=== PATIENT | male | born 1940 | race Caucasian/White ===

== ENCOUNTER 2019-07-26 12:34 | Emergency (ER) | payer MEDICARE, OTHER, SELFPAY ==
[2019-07-26 12:45] VITALS: BP 145/128; PULSE 85; RESP 18; TEMP 36.9; O2SAT 99
--- NOTE | 2019-07-26 12:48 | ED.LOWEXIN ---
HPI - Extremity Injury (Lower) General Chief Complaint: Extremity Injury, Lower Stated Complaint: gout/r/foot Time Seen by Provider: 07/26/19 12:49 Source: patient Mode of arrival: ambulatory Limitations: no limitations History of Present Illness HPI Narrative: Chandrakant Irby is a 78-year-old male with a PMH of high blood pressure, high cholesterol, A. fib, gout, comes to express care with pain of right foot, that believes he has a flare of gout x1 week Related Data Home Medications Medication Instructions Recorded Confirmed Medications Unknown About 12 07/26/19 Allergies Allergy/AdvReac Type Severity Reaction Status Date / Time No Known Allergies Allergy Verified 07/26/19 12:49 Review of Systems Review of Systems: Narrative: CONSTITUTIONAL: Denies fever, chills, sweats. EYES: Denies visual changes, redness, discharge. ENT: Denies rhinorrhea, congestion, sore throat, otalgia. CARDIOVASCULAR: Denies chest pain, palpitations, edema. RESPIRATORY: Denies dyspnea, wheezing, cough GASTROINTESTINAL: Denies abdominal pain, nausea, vomiting, diarrhea. GENITOURINARY: Denies dysuria, hematuria, abnormal discharge SKIN: Denies rash or itching. NEUROLOGIC: Denies numbness, or focal weakness. PSYCHIATRIC: Denies anxiety or depression. Extremity: Swelling of base E great toe PMFSH Past Medical History Medical History CHF (congestive heart failure) COPD (chronic obstructive pulmonary disease) HLD (hyperlipidemia) Hypothyroid Kidney stone Laryngeal cancer x3 Pacemaker Skin cancer Tracheostomy in place Valvular heart disease Surgical History Surgical History H/O aortic valve replacement History of cardiac catheterization History of laryngectomy History of tonsillectomy History of umbilical hernia repair Family History Family History Father Family history of cardiovascular disease Mother Family history of cardiovascular disease Social History Social History Smoking status: Former smoker Alcohol intake: never Gender identity (if verbalized by the patient): Male Comments At time of signature, I agree with nursing past medical, surgical, social and family history. There is no relevant family history pertinent to the presenting complaint. Exam Narrative: Exam Narrative: GENERAL: This is a well-nourished, well-developed patient, in mild distress. HEAD: normocephalic, atraumatic. EYES: Sclera clear/white. Vision is grossly intact. EARS: External ears normal, Hearing grossly intact. NOSE: External nose normal with no obvious nasal discharge, nares without redness, no rhinorrhea. THROAT: Mucous membranes moist, . NECK: Neck supple, non-tender has permanent tracheotomy CARDIOVASCULAR: Regular rate and rhythm without murmurs, gallops, or rubs. RESPIRATORY: Clear to auscultation. Breath sounds equal bilaterally. No wheezes, rales, or rhonchi. GASTROINTESTINAL: Abdomen soft, non-tender, nondistended. SKIN: warm, intact, swelling base of right great toe, tender to touch, pain with walking NEURO: awake, alert, and oriented to person, place and time. EXTREMITIES: Normal range of motion. No edema. BACK: Nontender without deformity. Course Course Emergency Course: Started on [place] and prednisone Vital Signs Vital signs: Vital Signs Temperature 98.5 F 07/26/19 12:45 Pulse Rate 85 07/26/19 12:45 Respiratory Rate 18 07/26/19 12:45 Blood Pressure 145/128 H 07/26/19 12:45 Pulse Oximetry 99 07/26/19 12:45 Temperature 98.5 F 07/26/19 12:45 Pulse Rate 85 07/26/19 12:45 Respiratory Rate 18 07/26/19 12:45 Blood Pressure 145/128 H 07/26/19 12:45 Pulse Oximetry 99 07/26/19 12:45 MDM - Extremity Injury (Lower) Differential Diagn
== END 2019-07-26 13:06 | disposition home or self-care (01) ==
PROVIDERS: Emergency Provider Nurse Practitioner
DX: M10.9 Gout, unspecified (principal); Z87.891 Personal history of nicotine dependence; Z95.2 Presence of prosthetic heart valve; J44.9 Chronic obstructive pulmonary disease, unspecified; E03.9 Hypothyroidism, unspecified; Z95.0 Presence of cardiac pacemaker; Z85.828 Personal history of other malignant neoplasm of skin; E78.5 Hyperlipidemia, unspecified; I50.9 Heart failure, unspecified; Z85.21 Personal history of malignant neoplasm of larynx; Z93.0 Tracheostomy status; I11.0 Hypertensive heart disease with heart failure; I48.91 Unspecified atrial fibrillation
CPT/HCPCS: 99213; G0463

== ENCOUNTER → 2019-08-20 14:58 | Outpatient (CLI) | payer MEDICARE, OTHER, SELFPAY ==
--- NOTE | ~2019-08-20 | XR_ITS ---
EXAMINATION: XR foot RT min 3V DATE: 08/20/2019 15:21 INDICATION: Right foot pain TECHNIQUE: Dorsoplantar, lateral, and 2 oblique views of the right foot were obtained. COMPARISON: None. FINDINGS: There are juxta-articular erosions at the distal aspect of the first metatarsal near the me tatarsophalangeal joint which demonstrates sclerotic margins and adjacent soft tissue swelling. 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 There is no fracture. Calcified atheroscle rosis is noted. There are dorsal and plantar calcaneal enthesophytes. IMPRESSION: 1. Findings suggestive of gout at the first metatarsophalangeal joint. Reviewed, dictated and finalized at location A.
== END ==
PROVIDERS: PCP Emergency Medicine; Visit Provider Emergency Medicine
DX: L03.90 Cellulitis, unspecified (principal)
CPT/HCPCS: 73630

== ENCOUNTER 2019-11-28 15:50 | Emergency (ER) | payer MEDICARE, OTHER, SELFPAY ==
[2019-11-28 16:07] VITALS: BP 135/56; PULSE 78; RESP 16; TEMP 37; O2SAT 99
--- NOTE | 2019-11-28 16:28 | ED.GENADULT ---
HPI - General Adult General Chief complaint: Extremity Problem,Nontraumatic Stated complaint: left ankle sprain Time Seen by Provider: 11/28/19 16:28 Source: patient and RN notes reviewed Mode of arrival: ambulatory Limitations: no limitations History of Present Illness HPI narrative: This is a 79 years old male presents to the office for an evaluation of left ankle swollen for three to four days. He woke up with pain. Symptoms reminiscent his previous gout. He admits to eating lots of Chips and fried fish, denies drinking alcohol or eating red meat. Denies recent injury/trauma/insect bite. He tried ice and ankle splint with no relief. Related Data Home Medications Medication Instructions Recorded Confirmed Medications Unknown About 12 07/26/19 Allergies Allergy/AdvReac Type Severity Reaction Status Date / Time No Known Allergies Allergy Verified 07/26/19 12:49 Review of Systems Review of Systems: Narrative: CONSTITUTIONAL: Denies fever, chills CARDIOVASCULAR: Denies chest pain RESPIRATORY: Denies dyspnea,cough GASTROINTESTINAL: Denies abdominal pain, nausea, vomiting SKIN: Denies rash MUSCULOSKELETAL: Reports left ankle swollen NEUROLOGIC: Denies lightheaded All other systems reviewed are negative, except as documented in HPI. [facility] Past Medical History Medical History CHF (congestive heart failure) COPD (chronic obstructive pulmonary disease) HLD (hyperlipidemia) Hypothyroid Kidney stone Laryngeal cancer x3 Pacemaker Skin cancer Tracheostomy in place Valvular heart disease Surgical History Surgical History H/O aortic valve replacement History of cardiac catheterization History of laryngectomy History of tonsillectomy History of umbilical hernia repair Family History Family History Father Family history of cardiovascular disease Mother Family history of cardiovascular disease Social History Social History Smoking status: Former smoker Alcohol intake: never Gender identity (if verbalized by the patient): Male Comments At time of signature, I agree with nursing past medical, surgical, social and family history. There is no relevant family history pertinent to the presenting complaint. Exam Narrative: Exam Narrative: GENERAL: This is a well-nourished, well-developed patient, in no apparent distress. NECK: tracheal ostomy noted CARDIOVASCULAR: Regular rate and rhythm without murmurs, gallops, or rubs. RESPIRATORY: Clear to auscultation. Breath sounds equal bilaterally. No wheezes, rales, or rhonchi. GASTROINTESTINAL: Abdomen soft, non-tender, nondistended. Bowel sounds are active. No hepato-splenomegaly, or palpable masses. No guarding. SKIN: warm, intact with no suspicious lesions or rash, good texture and turgor. NEURO: awake, alert, and oriented to person, place and time. There were no obvious focal neurologic abnormalities. Steady gait EXTREMITIES: left lateral ankle appears swollen, tender to palpation with slight erythema and warmth to palpation. Pedal pulse intact. Right foot/ankle intact. Skin intact. Evelin Coma Scale Eye Opening: Spontaneous 4 [place] Coma Scale Motor: Obeys Commands 6 E[place]in Coma Scale Verbal: Oriented 5 Course Vital Signs Vital signs: Vital Signs Temperature 98.6 F 11/28/19 16:07 Pulse Rate 78 11/28/19 16:07 Respiratory Rate 16 11/28/19 16:07 Blood Pressure 135/56 L 11/28/19 16:07 Pulse Oximetry 99 11/28/19 16:07 Temperature 98.6 F 11/28/19 16:07 Pulse Rate 78 11/28/19 16:07 Respiratory Rate 16 11/28/19 16:07 Blood Pressure 135/56 L 11/28/19 16:07 Pulse Oximetry 99 11/28/19 16:07 Medical Decision Making MDM Narrative Medical decision making narrative: Discharge
== END 2019-11-28 16:49 | disposition home or self-care (01) ==
PROVIDERS: Emergency Provider Nurse Practitioner
DX: M10.9 Gout, unspecified (principal); Z87.891 Personal history of nicotine dependence; I50.9 Heart failure, unspecified; J44.9 Chronic obstructive pulmonary disease, unspecified; E78.5 Hyperlipidemia, unspecified; E03.9 Hypothyroidism, unspecified; Z95.0 Presence of cardiac pacemaker; Z85.21 Personal history of malignant neoplasm of larynx; Z85.828 Personal history of other malignant neoplasm of skin; Z93.0 Tracheostomy status; Z95.2 Presence of prosthetic heart valve
CPT/HCPCS: 99213; G0463

== ENCOUNTER 2020-01-03 15:15 | Outpatient (CLI) | payer MEDICARE, OTHER, SELFPAY ==
[2020-01-03 15:43] LABS: Basophils Absolute Auto 0.1 K/mm3 (0.0-0.1); Basophils Percent Auto 0.7 % (0.2-1.2); Eosinophils Absolute Auto 0.5 K/mm3 (0-0.3); Eosinophils Percent Auto 7.7 % (0-4.4); Hematocrit 36.4 % (42.0-52.0); Immature Granulocyte Absolute 0.02 K/mm3 (0.00-0.031); Immature Granulocyte Percent A 0.3 % (0-0.5); Immature Reticulocyte Fraction 10.6 % (3.0-15.9); Lymphocytes Absolute Auto 0.72 K/mm3 (0.9-3.2); Lymphocytes Percent Auto 10.7 % (18.3-44.2); Mean Corpuscular Hemoglobin 31.7 pg (26-34); Mean Corpuscular Volume 96.3 fl (80-100); Mean Platelet Volume 9.1 fl (7.4-10.4); Monocytes Absolute Auto 0.5 K/mm3 (0.1-0.6); Monocytes Percent Auto 7.4 % (2.6-8.5); Neutrophils Absolute Auto 4.9 K/mm3 (1.3-6.7); Neutrophils Percent Auto 73.2 % (45.5-73.1); Platelet Count Result 134 k/mm3 (150-375); Red Blood Count 3.78 M/mm3 (4.6-6.20); Red Cell Distribution Width 13.2 % (11.5-14.5); Reticulocyte Hemoglobin Conten 36.9 pg (28.2-35.7); Reticulocyte Percent 1.16 % (0.7-4.3); Reticulocytes Absolute 0.04 B/L (32.2-175.7); White Blood Count 6.7 K/mm3 (4.5-10.0)
[2020-01-03 16:48] LABS: Iron 65 ug/dL (49-181)
[2020-01-03 16:50] LABS: Alanine Aminotransferase 17 U/L (4-50); Albumin Level 3.5 g/dL (3.5-5.1); Alkaline Phosphatase 78 U/L (38-126); Anion Gap 5 mmol/L (8-16); Aspartate Amino Transferase 34 U/L (17-59); Bilirubin,Total 0.4 mg/dL (0.2-1.3); Blood Urea Nitrogen 25 mg/dL (9-20); Calcium 8.9 mg/dL (8.4-10.2); Carbon Dioxide 25 mmol/L (22-30); Chloride 109 mmol/L (98-107); Estimated Glomerular Filt Rate 53; Glucose 92 mg/dL (75-110); Lactate Dehydrogenase 608 U/L (313-618); Potassium 4.5 mmol/L (3.4-5.0); Sodium 139 mmol/L (137-145)
[2020-01-03 17:06] LABS: Percent Iron Saturation 23 % (20-50)
[2020-01-11 18:39] LABS: Soluble Transferrin Receptor 2.48 mg/L (0.76-1.76)
== END 2020-01-03 15:16 | disposition home or self-care (01) ==
PROVIDERS: Visit Provider Internal Medicine Hematology & Oncology
DX: D64.9 Anemia, unspecified (principal)
CPT/HCPCS: 36415; 80053; 82607; 82728; 82746; 83540; 83550; 83615; 84238; 85025; 85046

== ENCOUNTER 2020-06-19 15:56 | Outpatient (CLI) | payer MEDICARE, OTHER, SELFPAY ==
[2020-06-19 16:29] LABS: Anion Gap 5 mmol/L (8-16); Blood Urea Nitrogen 40 mg/dL (9-20); Carbon Dioxide 28 mmol/L (22-30); Chloride 107 mmol/L (98-107); Estimated Glomerular Filt Rate 36; Glucose 104 mg/dL (75-110); Potassium 4.3 mmol/L (3.4-5.0); Sodium 140 mmol/L (137-145)
== END 2020-06-19 15:57 | disposition home or self-care (01) ==
LOC: ANHLAB 16:00
PROVIDERS: Visit Provider Nurse Practitioner Adult Health
DX: I50.22 Chronic systolic (congestive) heart failure (principal)
CPT/HCPCS: 36415; 80048

== ENCOUNTER 2020-07-23 12:43 | Outpatient (CLI) | payer MEDICARE, OTHER, SELFPAY ==
[2020-07-23 14:02] LABS: Anion Gap 8 mmol/L (8-16); Blood Urea Nitrogen 52 mg/dL (9-20); Calcium 8.8 mg/dL (8.4-10.2); Carbon Dioxide 26 mmol/L (22-30); Chloride 105 mmol/L (98-107); Estimated Glomerular Filt Rate 45; Glucose 99 mg/dL (75-110); Potassium 4.6 mmol/L (3.4-5.0); Sodium 139 mmol/L (137-145)
== END 2020-07-23 12:44 | disposition home or self-care (01) ==
LOC: ANHLAB 12:47
PROVIDERS: Visit Provider Nurse Practitioner Adult Health
DX: I50.9 Heart failure, unspecified (principal)
CPT/HCPCS: 36415; 80048

== ENCOUNTER 2020-10-08 15:44 | Emergency (ER) | payer MEDICARE, OTHER, SELFPAY ==
--- NOTE | ~2020-10-08 | CT_ITS ---
EXAMINATION: CT brain wo con DATE: 10/08/2020 17:07 INDICATION: Dizziness post fall with head injury TECHNIQUE: Computed tomography (CT) of the head was performed without intravenous contrast. Sagittal and coronal reconstructions were performed. The mA was adjusted according to patient size. Iterative reconstruction technique was employed. The dose-length product was 681.00 mGy-cm. COMPARISON: None FINDINGS: Plain screw fixation along the lateral rim of the right orbit. Old fractures involving the right maxi llary sinus the visualized portion of which appears completely opacified. No acute fractures identifi ed. No acute intracranial hemorrhage, acute infarction or abnormal extra axial fluid collection. Symm etric prominence of the sulci and ventricles consistent with mild to moderate age-appropriate diffuse cerebral volume loss. No mass/mass effect. Mastoid air cells and middle ear cavities are clear. Intr acranial calcified cerebral atherosclerosis is noted. IMPRESSION: 1. Normal aging brain. No acute fracture or acute intracranial process. Reviewed, dictated and finalized at location A.
[2020-10-08 15:58] VITALS: BP 105/42; PULSE 73; RESP 16; TEMP 36.2; O2SAT 98
--- NOTE | 2020-10-08 16:44 | ED.HEATRA ---
HPI - Head Injury General Chief complaint: Head Injury Stated complaint: Fall, Head Injury, Laceration Time Seen by Provider: 10/08/20 16:44 History of Present Illness HPI Narrative: 80 yo male with multiple medical problems presents to the ED complaining of a scalp laceration. He reports that he was working in the yard when he slipped on wet leaves and struck the back of his head. He had momentary dizziness and confusion. No LOC. He sustained a laceration to the top of his scalp. He is not on any blood thinners. Related Data Home Medications Medication Instructions Recorded Confirmed carvedilol 10/08/20 clotrimazole mg 10/08/20 Allergies Allergy/AdvReac Type Severity Reaction Status Date / Time No Known Allergies Allergy Verified 07/26/19 12:49 Review of Systems Constitutional: Constitutional: Denies fever(s) and Denies weakness Eyes: Eyes: Denies change in vision Cardiovascular: Cardiovascular: Denies chest pain Respiratory: Respiratory: Denies dyspnea Gastrointestinal: Gastrointestinal: Denies nausea Musculoskeletal: Musculoskeletal: Denies back pain Neurologic: Denies headache(s), Denies numbness and Denies weakness Hematologic/Lymphatic: Hematologic/Lymphatic: Denies easy bleeding and Denies easy bruising PMFSH Past Medical History Medical History CHF (congestive heart failure) COPD (chronic obstructive pulmonary disease) HLD (hyperlipidemia) Hypothyroid Kidney stone Laryngeal cancer x3 Pacemaker Skin cancer Tracheostomy in place Valvular heart disease Surgical History Surgical History H/O aortic valve replacement History of cardiac catheterization History of laryngectomy History of tonsillectomy History of umbilical hernia repair Family History Family History Father Family history of cardiovascular disease Mother Family history of cardiovascular disease Social History Social History Smoking status: Former smoker Alcohol intake: never Gender identity (if verbalized by the patient): Male Exam Const: General: no acute distress and alert Nutritional Appearance: well nourished Orientation/consciousness: patient oriented x3 HENMT: Face and sinus: normal facial exam Other: 6 cm parietal scalp laceration with abraded and macerated edges Eyes: Pupils: Equal, round and reactive pupils present Neck: Other: tracheostomy in place Resp: Effort & Inspection: normal respiratory effort Auscultation: clear to auscultation bilaterally Cardio: Rate: regular rate Rhythm: regular rhythm Skin: General skin exam: normal color Neuro: General: patient oriented x3, moves all extremities and no focal motor deficits Cranial nerves: Yes CN's II-XII intact bilaterally Gait exam (Neuro): Normal gait present Extrem: General: normal to inspection Psych: Appearance: grossly normal and well kempt Mental Status: mental status grossly normal Affect: normal affect Attitude: cooperative Course Vital Signs Vital signs: Vital Signs Temperature 36.2 C L 10/08/20 15:58 Pulse Rate 73 10/08/20 15:58 Respiratory Rate 16 10/08/20 15:58 Blood Pressure 105/42 L 10/08/20 15:58 Pulse Oximetry 98 10/08/20 15:58 Temperature 36.2 C L 10/08/20 15:58 Pulse Rate 73 10/08/20 15:58 Respiratory Rate 16 10/08/20 15:58 Blood Pressure 105/42 L 10/08/20 15:58 Pulse Oximetry 98 10/08/20 15:58 Procedures Laceration Laceration 1: Site: scalp Size (cm): 6 Depth: simple, single layer Local Anesthetic: lidocaine 1% and with epi Amount of anesthesia used (mL): 5 Pre-repair: wound explored, irrigated and minor debridement ====== Skin Level ====== Skin layer closed with: vicry
[2020-10-08 17:52] VITALS: BP 131/41; PULSE 83; RESP 18; TEMP 36.3; O2SAT 98
== END 2020-10-08 17:52 | disposition home or self-care (01) ==
PROVIDERS: Emergency Provider Emergency Medicine
DX: S01.01XA Laceration without foreign body of scalp, initial encounter (principal); I50.9 Heart failure, unspecified; J44.9 Chronic obstructive pulmonary disease, unspecified; E78.5 Hyperlipidemia, unspecified; E03.9 Hypothyroidism, unspecified; Z87.442 Personal history of urinary calculi; Z95.0 Presence of cardiac pacemaker; Z85.828 Personal history of other malignant neoplasm of skin; I38 Endocarditis, valve unspecified; Z95.2 Presence of prosthetic heart valve; Z87.891 Personal history of nicotine dependence; Z85.21 Personal history of malignant neoplasm of larynx; Z93.0 Tracheostomy status; W01.0XXA Fall on same level from slipping, tripping and stumbling without subsequent striking against object, initial encounter
CPT/HCPCS: 12002; 70450; 99284

== ENCOUNTER 2022-05-05 11:50 | Emergency (ER) | payer MEDICARE, OTHER, SELFPAY ==
[2022-05-05 12:02] VITALS: BP 89/35; PULSE 71; RESP 24; TEMP 35.8; O2SAT 97
--- NOTE | 2022-05-05 12:29 | ED.URI ---
HPI - URI/Sore Throat General Chief Complaint: Upper Respiratory Infection Stated Complaint: Cough/ Chest Pain/ Fatique Time Seen by Provider: 05/05/22 12:05 Source: patient Mode of arrival: ambulatory Limitations: no limitations History of Present Illness HPI Narrative: Chandrakant is an 81-year-old male patient presenting to clinic today with complaints of cough, chest pain, shortness of breath, and fatigue x2 days. He denies any known fever or chills. SpO2 was 83% initially upon exam. He thinks he may have pneumonia. He just had throat surgery 1 week ago at [facility]. 10 L of O2 the oxygen was placed over the trach and EMS was contacted. MD elicited complaint: cough and other ( Congestion, shortness of breath) Related Data Home Medications Medication Instructions Recorded Confirmed carvedilol 12.5 mg tablet 10/08/20 clotrimazole 10 mg michelle mg 10/08/20 Allergies Allergy/AdvReac Type Severity Reaction Status Date / Time No Known Allergies Allergy Verified 07/26/19 12:49 Review of Systems Review of Systems: Pertinent positives per HPI. Patient denies any fever, chills, rash, headache, visual changes, dizziness, cough, shortness of breath, chest pain, palpitations, nausea, vomiting, diarrhea, constipation, abdominal pain, or any urinary issues. [facility] Past Medical History Medical History (Updated 05/05/22 @ 15:14 by Svetlana Clemons MD) CHF (congestive heart failure) COPD (chronic obstructive pulmonary disease) HLD (hyperlipidemia) Hypothyroid Kidney stone Laryngeal cancer x3 Pacemaker Skin cancer Tracheostomy in place Valvular heart disease Surgical History Surgical History H/O aortic valve replacement History of cardiac catheterization History of laryngectomy History of tonsillectomy History of umbilical hernia repair Family History Family History Father Family history of cardiovascular disease Mother Family history of cardiovascular disease Social History Social History Smoking status: Former smoker Alcohol intake: never Gender identity (if verbalized by the patient): Male Comments At the time of my signature, I reviewed and agree with the nursing past medical, surgical, social, and family history. There is no relevant family history pertinent to the patient complaint. Exam Narrative: General: Well-developed, well nourished, in moderate respiratory distress Head: Normocephalic, atraumatic Eyes: Pupils equally round and reactive to light bilaterally, EOM intact, sclera and conjunctive clear, no discharge, lids normal Ears: TMs intact and clear, ear canals clear, no drainage, grossly hearing normal. Nose: Nares patent, no discharge, no inflammation, no sinus tenderness. Mouth: Oral pharynx without lesions or masses, good dentition, MMM. Neck: Supple, trachea midline, no enlargement of anterior or posterior cervical nodes, no thyroid masses or goiter palpable. tracheostomy midline with crusty yellow drainage coming around trach Cardio: Regular rate and rhythm, s1 and s2 normal, no murmur appreciated. Resp: Expiratory wheezing throughout lung ruiz no rhonchi, rales,or rubs Course Course Emergency Course: Portions of this record may have been created with voice recognition software. Level of Care: Express Care Visit Vital Signs Vital signs: Vital Signs Temperature 35.8 C L 05/05/22 12:02 Pulse Rate 71 05/05/22 12:02 Respiratory Rate 24 H 05/05/22 12:02 Blood Pressure 89/35 L 05/05/22 12:02 Pulse Oximetry 97 05/05/22 12:02 Oxygen Delivery Room Air 05/05/22 12:02 Temperature 35.8 C L 05/05/22 12:02 Pulse Rate 71 05/05/22 12:02 Respiratory Rate 24 H 05/05/22 12:02 Blood Pressure 89/35 L 05/05/22 12:02 Pulse Oximetry 97 05/05/22 12:02 Oxygen De
== END 2022-05-05 12:21 | disposition short-term general hospital (02) ==
LOC: EXPCOLL 11:56
PROVIDERS: Emergency Provider Nurse Practitioner Family
DX: R06.02 Shortness of breath (principal); R09.02 Hypoxemia; I95.9 Hypotension, unspecified; R53.83 Other fatigue; I50.9 Heart failure, unspecified; J44.9 Chronic obstructive pulmonary disease, unspecified; E78.5 Hyperlipidemia, unspecified; E03.9 Hypothyroidism, unspecified; Z95.0 Presence of cardiac pacemaker; Z85.828 Personal history of other malignant neoplasm of skin; Z85.21 Personal history of malignant neoplasm of larynx; Z95.2 Presence of prosthetic heart valve; Z93.0 Tracheostomy status
CPT/HCPCS: 99212; G0463

== ENCOUNTER 2022-05-05 12:44 | Emergency (ER) | payer MEDICARE, OTHER, SELFPAY ==
[2022-05-05] VITALS (8 sets, daily range): BP systolic 100–118; BP diastolic 41–71; PULSE 75–87; RESP 16–32; O2SAT 95–98
--- NOTE | ~2022-05-05 | CT_ITS ---
EXAMINATION: CTA chest PE protocol DATE: 05/05/2022 16:07 INDICATION: Congestion and cough for 3 days. Positive d-dimer. TECHNIQUE: Computed tomography angiography (CTA) of the chest was performed with 100 mL Omnipaque-350 intravenous contrast timed to evaluate the pulmonary arteries. Coronal maximum intensity projection 3D-reconstructions were created by the technologist. Automated exposure control and iterative reconst ruction technique were employed. Exam dose: 415.95 mGy-cm total exam DLP. COMPARISON: 05/05/2022 portable AP chest FINDINGS: There is diagnostic contrast enhancement of the central pulmonary arteries; the peripheral pulmonary arteries particularly lower lobes are not optimally opacified with contrast material probab ly due to timing. No central pulmonary embolus is identified. There is cardiomegaly. There is reflux of contrast material into the inferior vena cava and hepatic v eins consistent with congestive heart failure. Coronary artery and aortic and great vessel calcifications. The ascending aorta measures 0.5 cm diameter, the aortic arch up to 3.3 cm diameter, consistent with thoracic aortic aneurysm. There is mild right and moderate left pleural effusion. Status post sternotomy/aortic valve replacement. Bilateral lower lobe infiltrate/compressive atelectasis, left greater than right. Patchy groundglass density of the lungs, which may be due to small airways disease/atelectasis. Diffuse idiopathic skeletal hyperostosis of the thoracic spine. Prominent degenerative disc disease a nd mild anterolisthesis at C6-7. Degenerative disc disease at C7-T1. IMPRESSION: Congestive heart failure, pleural effusions No evidence of central pulmonary embolism Thoracic aortic aneurysm Bilateral lower lobe compressive atelectasis/infiltrate Status post sternotomy/aortic valve replacement Reviewed, dictated and finalized at Location A. Reviewed, dictated and finalized at location B. RER/KEY MAN
--- NOTE | ~2022-05-05 | XR_ITS ---
EXAMINATION: XR chest 1V portable DATE: 05/05/2022 13:20 INDICATION: Hypoxia. Cough and congestion. TECHNIQUE: A single frontal view of the chest was obtained. COMPARISON: Chest 2 views 05/16/2019, CT abdomen and pelvis 03/03/2016 FINDINGS: There are small pleural effusions. There are airspace opacities in the perihilar regions an d at the lung bases. No pneumothorax. Cardiomegaly is noted. There are changes of aortic valve replac ement. A tracheostomy is noted. Epicardial pacer wires are noted. IMPRESSION: 1. Worsened airspace opacities in the perihilar regions and at the lung bases, consistent with pulmon kike edema versus pneumonia. 2. Worsened small pleural effusions. 3. Cardiomegaly. Reviewed, dictated and finalized at location A. ERY OPERATOR IMPRESSION: 1. Worsened airspace opacities in the perihilar regions and at the lung bases, consistent with pulmonary edema versus pneumonia. 2. Worsened small pleural effusions. 3. Cardiomegaly.
--- NOTE | 2022-05-05 12:38 | ED.SOB ---
HPI - SOB/Dyspnea General Chief Complaint: Shortness of Breath/Dyspnea Stated Complaint: SOB Source: patient and EMS Mode of arrival: EMS Limitations: no limitations History of Present Illness HPI Narrative: Patient is an 81-year-old male with a history of laryngeal cancer, s/p tracheostomy, CHF, COPD, hypertension, recurrent pneumonia, presenting to the emergency department for evaluation of hypoxia. Patient has been feeling well, per home health nurse today, oxygen saturation was 80% on room air. Patient does not require oxygen typically. Patient was then referred to an urgent care for a chest x-ray and secondary to his confirmed hypoxia at 80%, they referred him here via ambulance. Patient was stable vital signs in route, was noted to be 86% on room air by EMS crew as well. Patient denies any shortness of breath, does report cough with increased sputum production and had large amount of sputum production and ambulance ride. Patient without fever, chills, nausea or vomiting. I spoke personally with EMS crew as well as patient to corroborate history. Patient states that patient was recently discharged home after admission at [facility] for bleeding from tracheostomy site, patient had been inserting suction tubing deeply, causing partial tracheal tears and profuse bleeding that had to be resolved with procedure/admission at [facility] with CT surgery. Patient was discharged from that facility 04/26/2022. Related Data Home Medications Medication Instructions Recorded Confirmed carvedilol 12.5 mg tablet 10/08/20 clotrimazole 10 mg michelle mg 10/08/20 Allergies Allergy/AdvReac Type Severity Reaction Status Date / Time No Known Allergies Allergy Verified 07/26/19 12:49 Review of Systems Review of Systems: CONSTITUTIONAL: Denies fever, chills, or sweats. EYES: Denies visual changes, redness, or discharge. ENT: Reports congestion, denies sore throat CARDIOVASCULAR: Denies chest pain, palpitations, or edema. RESPIRATORY: Reports cough without shortness of GASTROINTESTINAL: Denies abdominal pain, nausea, vomiting, or diarrhea. [facility] Past Medical History Medical History (Updated 05/05/22 @ 16:34 by Svetlana Clemons MD) CHF (congestive heart failure) COPD (chronic obstructive pulmonary disease) HLD (hyperlipidemia) Hypothyroid Kidney stone Laryngeal cancer x3 Pacemaker Skin cancer Tracheostomy in place Valvular heart disease Surgical History Surgical History H/O aortic valve replacement History of cardiac catheterization History of laryngectomy History of tonsillectomy History of umbilical hernia repair Family History Family History Father Family history of cardiovascular disease Mother Family history of cardiovascular disease Social History Social History Smoking status: Former smoker Alcohol intake: never Gender identity (if verbalized by the patient): Male Exam Narrative: GENERAL: Awake, alert, conversant, well-appearing HEAD: Normocephalic, atraumatic. EYES: PERRLA and EOMI. ENT: Nares clear, no rhinorrhea or epistaxis. Mucous membranes moist. NECK: Supple. Tracheostomy in place. CHEST: No respiratory distress, breathing even and non labored, coarse breath sounds bilaterally, faint expiratory wheezing bilaterally HEART: Regular rate, sinus rhythm ABDOMEN:Non distended, non tender EXTREMITIES: Normal range of motion. No edema. SKIN: Warm, dry, no rash. NEURO:No focal deficits. Alert and oriented x3 Course Vital Signs Vital signs: Vital Signs Pulse Rate 79 05/05/22 12:45 Respiratory Rate 32 H 05/05/22 12:45 Blood Pressure 110/42 L 05/05/22 12:45 Pulse Oximetry 98 05/05/22 12:45 Oxygen Delivery Room Air 05/05/22 12:45 Pulse Rate 77 05/05/22 17:00
--- NOTE | 2022-05-05 12:46 | ECG_ITS ---
Measurements Intervals [place] Rate: 115 P: MD: 0 QRS: 257 QRSD: 25 T: 240 QT: 189 QTc: 262 Interpretive Statements ELECTRONIC ATRIAL PACEMAKER ELCTRONIC VENTRICULAR PACEMAKER WITH FUSION COMPLEXES NO FURTHER INTERPRETATION IS POSSIBLE ATYPICAL ECG COMPARED TO ECG 09/27/2018 07:39:39 NO SIGNIFICANT CHANGES Electronically Signed On 05-05-2022 13:44:28 CLINICAL NUTRITIONIST by Bang Ruelas D.O.
[2022-05-05 13:13] LABS: Alveolar/Arterial O2 Gradient 37.9 mmHg; Base Excess ABG -0.9 mEq/l (+/-2.0); Fractional Inspired Oxygen 21 %; HCO3 ABG 23.6 mEq/l (22.0-26.0); Oxygen Content ABG 15.5 %vol (16.0-22.0); Oxygen Saturation ABG 93.3 % (95.0-100.0); PCO2 ABG 38.3 mmHg (35.0-45.0); PO2 FiO2 Ratio Arterial Blood 3.14 %; Total Hemoglobin 12.1 g/dL (12.0-18.0); pH ABG 7.407 (7.350-7.450)
[2022-05-05 13:15] LABS: Device ROOM AIR; Modified Allen's Test Pass; Site Drawn RIGHT RADIAL
[2022-05-05] MEDS: ALBUTEROL SULFATE NEB 2.5 MG/3 ML INH 5 MG INHALATION ×3 (13:20→13:30)
[2022-05-05] MEDS: IPRATROPIUM BR 0.02% INH SOLN 0.5 MG/2.5 ML VIAL INHALATION (13:20)
[2022-05-05] MEDS: methylPREDNISolone SOD SUCC 125 MG VIAL IV PUSH (13:36)
[2022-05-05 13:53] LABS: Influenza A QL RT-PCR Negative (Negative); Influenza B QL RT-PCR Negative (Negative); RSV RNA, RT-PCR Negative (Negative); SARS-CoV-2 RNA PCR Negative
[2022-05-05 13:56] LABS: Basophils Absolute Auto 0.1 K/mm3 (0.0-0.1); Basophils Percent Auto 0.7 % (0.2-1.2); Eosinophils Absolute Auto 0.5 K/mm3 (0-0.3); Eosinophils Percent Auto 6.6 % (0-4.4); Hematocrit 37.9 % (42.0-52.0); Hemoglobin 11.7 g/dL (14.0-18.0); Immature Granulocyte Absolute 0.02 K/mm3 (0.00-0.031); Immature Granulocyte Percent A 0.3 % (0-0.5); Lymphocytes Absolute Auto 0.65 K/mm3 (0.9-3.2); Lymphocytes Percent Auto 9.4 % (18.3-44.2); Mean Corpuscular HGB Conc 30.9 g/dl (32-36); Mean Corpuscular Hemoglobin 31.4 pg (26-34); Mean Corpuscular Volume 101.6 fl (80-100); Mean Platelet Volume 9.8 fl (7.4-10.4); Monocytes Absolute Auto 0.4 K/mm3 (0.1-0.6); Monocytes Percent Auto 5.8 % (2.6-8.5); Neutrophils Absolute Auto 5.4 K/mm3 (1.3-6.7); Neutrophils Percent Auto 77.2 % (45.5-73.1); Platelet Count Result 139 k/mm3 (150-375); Red Blood Count 3.73 M/mm3 (4.6-6.20); Red Cell Distribution Width 14.6 % (11.5-14.5); White Blood Count 6.9 K/mm3 (4.5-10.0)
[2022-05-05 14:06] LABS: Lactic Acid Reflex 2.1 mmol/L (0.7-2.0)
[2022-05-05 14:10] LABS: Alanine Aminotransferase 23 U/L (6-50); Alkaline Phosphatase 93 U/L (38-126); Anion Gap 9 mmol/L (8-16); Aspartate Amino Transferase 26 U/L (17-59); Bilirubin,Total 0.7 mg/dL (0.2-1.3); Blood Urea Nitrogen 42 mg/dL (9-20); Calcium 8.7 mg/dL (8.4-10.2); Carbon Dioxide 24 mmol/L (22-30); Chloride 104 mmol/L (98-107); Estimated CRCL calculation 41 ml/min; Estimated Glomerular Filt Rate 53; Glucose 81 mg/dL (65-110); Potassium 4.7 mmol/L (3.4-5.0); Sodium 137 mmol/L (137-145)
[2022-05-05 14:19] LABS: NT Pro B Type Natriuretic Pept 16200 pg/mL (5-100); Troponin I 0.015 ng/mL (0.000-0.034)
[2022-05-05 14:49] LABS: INR 1.3; Prothrombin Time 15.5 Seconds (11.1-14.7)
--- NOTE | 2022-05-05 14:49 | PC.NURSE ---
Pt ambulated with the pulse ox and maintained 92-93% while ambulating.
[2022-05-05] MEDS: FUROSEMIDE INJ 40 MG/4 ML VIAL 20 MG IV PUSH (15:03)
[2022-05-05 15:23] LABS: D Dimer 1.37 ug/mL (<0.48)
[2022-05-05 16:54] LABS: Reflex Lactic Acid Yes or No Add Lactic
== END 2022-05-05 17:30 | disposition home or self-care (01) ==
PROVIDERS: Emergency Provider Emergency Medicine
DX: T17.990A Other foreign object in respiratory tract, part unspecified in causing asphyxiation, initial encounter (principal); I50.9 Heart failure, unspecified; J90 Pleural effusion, not elsewhere classified; Z20.822 Contact with and (suspected) exposure to COVID-19; C32.9 Malignant neoplasm of larynx, unspecified; J44.9 Chronic obstructive pulmonary disease, unspecified; E78.5 Hyperlipidemia, unspecified; E03.9 Hypothyroidism, unspecified; I38 Endocarditis, valve unspecified; Z93.0 Tracheostomy status; Z95.0 Presence of cardiac pacemaker; Z95.2 Presence of prosthetic heart valve; Z87.01 Personal history of pneumonia (recurrent); Z85.828 Personal history of other malignant neoplasm of skin; Z87.442 Personal history of urinary calculi; Z87.891 Personal history of nicotine dependence; I71.20 Thoracic aortic aneurysm, without rupture, unspecified; I51.7 Cardiomegaly
CPT/HCPCS: 36415; 36600; 71045; 71275; 80053; 82805; 83605; 83880; 84484; 85025; 85380; 85610; 85730; 87040; 87637; 93005; 94640; 96374; 96375; 99284; J1940; J2930; Q9967

== ENCOUNTER 2022-08-02 11:27 | Emergency (ER) | payer MEDICARE, OTHER, SELFPAY ==
--- NOTE | ~2022-08-02 | XR_ITS ---
EXAMINATION: XR knee RT min 4V DATE: 08/02/2022 13:17 INDICATION: Right knee swelling. TECHNIQUE: 4 views of right knee were obtained. COMPARISON: Right knee radiographs 01/04/2019 FINDINGS: Bone alignment is normal. No fracture. There is mild tricompartmental osteoarthritis. There is chondrocalcinosis of the menisci. There is a moderate-sized knee joint effusion. IMPRESSION: 1. Mild right knee osteoarthritis. 2. Moderate-sized right knee joint effusion. Reviewed, dictated and finalized at location A.
[2022-08-02 11:30] VITALS: BP 106/39; PULSE 75; RESP 18; TEMP 36.8; O2SAT 100
[2022-08-02 13:56] VITALS: BP 113/58; PULSE 57; RESP 18; O2SAT 99
[2022-08-02 15:14] LABS: Basophils Percent Auto 0.5 % (0.2-1.2); Eosinophils Absolute Auto 0.2 K/mm3 (0-0.3); Eosinophils Percent Auto 2.4 % (0-4.4); Hematocrit 35.3 % (42.0-52.0); Hemoglobin 11.4 g/dL (14.0-18.0); Immature Granulocyte Absolute 0.03 K/mm3 (0.00-0.031); Immature Granulocyte Percent A 0.4 % (0-0.5); Immature Platelet Fraction Pct 2.2 % (0.9-11.2); Lymphocytes Absolute Auto 0.44 K/mm3 (0.9-3.2); Lymphocytes Percent Auto 5.6 % (18.3-44.2); Mean Corpuscular HGB Conc 32.3 g/dl (32-36); Mean Corpuscular Hemoglobin 32.1 pg (26-34); Mean Corpuscular Volume 99.4 fl (80-100); Mean Platelet Volume 9.5 fl (7.4-10.4); Monocytes Absolute Auto 0.9 K/mm3 (0.1-0.6); Monocytes Percent Auto 11.1 % (2.6-8.5); Neutrophils Absolute Auto 6.3 K/mm3 (1.3-6.7); Platelet Count Result 118 k/mm3 (150-375); Red Blood Count 3.55 M/mm3 (4.6-6.20); Red Cell Distribution Width 14.9 % (11.5-14.5); White Blood Count 7.9 K/mm3 (4.5-10.0)
[2022-08-02 15:25] LABS: Alanine Aminotransferase 19 U/L (6-50); Albumin Level 3.9 g/dL (3.5-5.1); Alkaline Phosphatase 95 U/L (38-126); Anion Gap 7 mmol/L (8-16); Aspartate Amino Transferase 23 U/L (17-59); Blood Urea Nitrogen 35 mg/dL (9-20); CRP 8.2 mg/dL (<1.0); Calcium 8.5 mg/dL (8.4-10.2); Carbon Dioxide 27 mmol/L (22-30); Chloride 103 mmol/L (98-107); Estimated Glomerular Filt Rate 58; Glucose 100 mg/dL (65-110); Potassium 4.2 mmol/L (3.4-5.0); Sodium 137 mmol/L (137-145)
--- NOTE | 2022-08-02 15:58 | ED.EXTPRO ---
HPI - Extremity Problem General Chief complaint: Extremity Problem,Nontraumatic Stated complaint: right knee swelling-denies injury, constipation Time Seen by Provider: 08/02/22 13:58 History of Present Illness HPI Narrative: This is an 82-year-old male with PMH of CHF, COPD, laryngeal cancer, tracheostomy who presents to the ED with chief complaint of right knee swelling and pain x3 days. Patient denies any injuries to the knee. He reports warmth and tenderness throughout the knee. Patient reports difficulty with ambulation. He has history of osteoarthritis in the knees. Also notes a history of gout but is only had this in the toes in the past. Denies fevers, chills, nausea, vomiting. Related Data Home Medications Medication Instructions Recorded Confirmed carvedilol 12.5 mg tablet 10/08/20 clotrimazole 10 mg michelle mg 10/08/20 Allergies Allergy/AdvReac Type Severity Reaction Status Date / Time No Known Allergies Allergy Verified 07/26/19 12:49 Review of Systems Review of Systems: CONSTITUTIONAL: Denies fever, chills, or sweats. EYES: Denies visual changes, redness, or discharge. ENT: Denies rhinorrhea, congestion, sore throat, or otalgia. CARDIOVASCULAR: Denies chest pain, palpitations, or edema. RESPIRATORY: Denies cough or dyspnea. GASTROINTESTINAL: Denies abdominal pain, nausea, vomiting, or diarrhea. GENITOURINARY: Denies dysuria or hematuria. SKIN: Denies rash or itching. MUSCULOSKELETAL: Endorses right knee pain and swelling. Denies back pain, other joint pain, or myalgia. NEUROLOGIC: Denies headache, numbness, dizziness, or weakness. PSYCHIATRIC: Denies anxiety or depression. [facility] Past Medical History Medical History (Updated 08/02/22 @ 18:27 by Peter Mendez PA-C) CHF (congestive heart failure) COPD (chronic obstructive pulmonary disease) HLD (hyperlipidemia) Hypothyroid Kidney stone Laryngeal cancer x3 Pacemaker Skin cancer Tracheostomy in place Valvular heart disease Surgical History Surgical History H/O aortic valve replacement History of cardiac catheterization History of laryngectomy History of tonsillectomy History of umbilical hernia repair Family History Family History Father Family history of cardiovascular disease Mother Family history of cardiovascular disease Social History Social History Smoking status: Former smoker Alcohol intake: never Gender identity (if verbalized by the patient): Male Exam Narrative: GENERAL: Well-appearing, well-nourished, and in no acute distress. HEAD: Normocephalic, atraumatic. EYES: PERRLA and EOMI. ENT: Nares clear, no rhinorrhea or epistaxis. Mucous membranes moist. Oropharynx without tonsillar hypertrophy exudate or other lesions. NECK: Supple. No adenopathy or masses. CHEST: No respiratory distress. Clear to auscultation. No wheezes rales or rhonchi HEART: Regular rate and rhythm. No murmur heard. Normal peripheral pulses. ABDOMEN: Soft, nontender, nondistended, normal active bowel sounds. EXTREMITIES: Right knee: Severely reduced range of motion due to pain. Pain with micro movements. Diffusely tender. Moderate effusion noted. Knee is warm without erythema. Left knee: Benign. MSK exam of other joints is otherwise benign. Normal range of motion. No edema. SKIN: Warm, dry, no rash. No erythema or bruising. NEURO: Alert and oriented x3. No focal deficits. PSYCH: Normal mood and affect. Course Course Emergency Course: 1819: Spoke with Dr. Fernández (orthopedics) who feels that this presentation may be more consistent with gout at this point. He is comfortable with sending the patient home and seeing him in clinic. also states he would consult on the patient after patient was admitted. 1824: Reevaluation; Patient's
[2022-08-02 17:52] VITALS: BP 105/42; PULSE 78; RESP 18; O2SAT 97
[2022-08-02 18:00] LABS: Appearance Synovial Fluid Bloody (Clear); Color Synovial Fluid Yellow (Colorless); Source Synovial Fluid Synovial fluid
[2022-08-02 18:01] LABS: Lymphocytes Synovial Fluid 1 %; Monocytes Synovial Fluid 5 %; Neutrophils Synovial Fluid 94 % (0-25)
[2022-08-02 18:11] LABS: Crystals Synovial Fluid None Seen (None Seen)
--- NOTE | 2022-08-02 18:18 | PC.NURSE ---
ZARIA CALLED FROM THE LAB TO NOTIFY US OF THIS PT'S RIGHT KNEE FLUID GRAM STAIN IS + FOR MANY WBC'S, BUT NO ORGANISMS ARE SEEN. MARIELENA SUTTON PA-C IS AWARE OF THESE RESULTS.
== END 2022-08-02 19:08 | disposition home or self-care (01) ==
PROVIDERS: Emergency Provider Physician Assistant
DX: M25.461 Effusion, right knee (principal); I50.9 Heart failure, unspecified; J44.9 Chronic obstructive pulmonary disease, unspecified; Z93.0 Tracheostomy status; E78.5 Hyperlipidemia, unspecified; I38 Endocarditis, valve unspecified; E03.9 Hypothyroidism, unspecified; M10.9 Gout, unspecified; Z85.01 Personal history of malignant neoplasm of esophagus; Z87.442 Personal history of urinary calculi; Z85.828 Personal history of other malignant neoplasm of skin; Z87.891 Personal history of nicotine dependence; Z95.2 Presence of prosthetic heart valve
CPT/HCPCS: 20610; 36415; 73564; 80053; 85025; 85055; 86140; 89051; 89060; 99283; J7512

== ENCOUNTER 2022-08-04 09:57 | Outpatient (NON) | payer MEDICARE, OTHER, SELFPAY ==
[2022-08-04 12:08] LABS: Source Synovial Fluid Synovial fluid
[2022-08-04 12:09] LABS: Color Synovial Fluid Other (Colorless)
[2022-08-04 12:11] LABS: Appearance Synovial Fluid Cloudy (Clear)
[2022-08-04 12:12] LABS: Nucleated Cell Synovial Fluid 19940 /uL (0-200); RBC Synovial Fluid 25000 /uL (0-0)
[2022-08-04 12:13] LABS: Lymphocytes Synovial Fluid 1 %; Monocytes Synovial Fluid 3 %; Neutrophils Synovial Fluid 96 % (0-25)
== END 2022-08-04 09:58 | disposition home or self-care (01) ==
LOC: ANHLAB 09:58
PROVIDERS: Visit Provider Orthopaedic Surgery
DX: M25.461 Effusion, right knee (principal); M17.11 Unilateral primary osteoarthritis, right knee
CPT/HCPCS: 87070; 87075; 87205; 89051; 89060

== ENCOUNTER 2023-08-15 10:24 | Observation (INO) | payer MEDICARE, OTHER, SELFPAY ==
[2023-08-15] VITALS (53 sets, daily range): BP systolic 95–141; BP diastolic 29–78; PULSE 37–87; RESP 12–38; TEMP 36.2–36.3; O2SAT 90–99; BMI 23.1
--- NOTE | ~2023-08-15 | CT_ITS ---
Clinical Indication: Shortness of CT Scan of the Chest with Contrast: Technique: Contiguous sections were acquired throughout the chest after intravenous administration of 100 cc of Omnipaque 350. Dose reduction technique was used on this scan by utilizing automated expos ure control and iterative reconstruction technique. The dose-length product (DLP) was 317.14 mGy-cm. Findings: There is no evidence of any significant mediastinal, hilar or axillary lymphadenopathy. There is no f illing defect in the pulmonary arterial tree to suggest pulmonary embolus. There is no evidence of ao rtic aneurysm. No pericardial effusion. Calcified pleural plaque noted at the right lung base. Tiny left pleural eff usion present. No right pleural effusion. The lungs are clear. No pulmonary nodules or infiltrates are noted. Images through the upper abdomen reveal no abnormalities. Impression: No evidence of pulmonary embolus. Tiny left pleural effusion. Calcified right basilar pleural plaque. Reviewed, dictated and finalized at [facility]. Impression: No evidence of pulmonary embolus. Tiny left pleural effusion. Calcified right basilar pleural plaque.
--- NOTE | ~2023-08-15 | XR_ITS ---
Portable chest x-ray Comparison: None Clinical History: Shortness of breath Findings: Lungs are clear, without focal consolidation or pleural effusion. Cardiomediastinal silho uette is prominent, status post aortic valve replacement. Bones and soft tissues are unremarkable. Impression: Clear lungs. Status post aortic valve replacement. Reviewed, dictated and finalized at location . Impression: Clear lungs. Status post aortic valve replacement.
--- NOTE | 2023-08-15 10:52 | ECG_ITS ---
SEE SCANNED COPY FOR CONFIRMED REPORT MTDD
[2023-08-15 11:37] LABS: Basophils Percent Auto 0.6 % (0.2-1.2); Eosinophils Absolute Auto 0.5 K/mm3 (0-0.3); Eosinophils Percent Auto 8.2 % (0-4.4); Hematocrit 42.1 % (42.0-52.0); Hemoglobin 13.6 g/dL (14.0-18.0); Immature Granulocyte Absolute 0.02 K/mm3 (0.00-0.031); Immature Granulocyte Percent A 0.3 % (0-0.5); Lymphocytes Absolute Auto 0.78 K/mm3 (0.9-3.2); Lymphocytes Percent Auto 12.3 % (18.3-44.2); Mean Corpuscular HGB Conc 32.3 g/dl (32-36); Mean Corpuscular Hemoglobin 32.5 pg (26-34); Mean Corpuscular Volume 100.7 fl (80-100); Mean Platelet Volume 9.9 fl (7.4-10.4); Monocytes Absolute Auto 0.4 K/mm3 (0.1-0.6); Monocytes Percent Auto 6.5 % (2.6-8.5); Neutrophils Absolute Auto 4.6 K/mm3 (1.3-6.7); Neutrophils Percent Auto 72.1 % (45.5-73.1); Platelet Count Result 105 k/mm3 (150-375); Red Blood Count 4.18 M/mm3 (4.6-6.20); Red Cell Distribution Width 13.8 % (11.5-14.5); White Blood Count 6.3 K/mm3 (4.5-10.0)
[2023-08-15 11:51] LABS: Alanine Aminotransferase 26 U/L (6-50); Albumin Level 4.1 g/dL (3.5-5.1); Alkaline Phosphatase 146 U/L (38-126); Anion Gap 6 mmol/L (4-12); Aspartate Amino Transferase 35 U/L (17-59); Bilirubin,Total 1.1 mg/dL (0.2-1.3); Blood Urea Nitrogen 46 mg/dL (9-20); Calcium 9.1 mg/dL (8.4-10.2); Carbon Dioxide 33 mmol/L (22-30); Chloride 99 mmol/L (98-107); Estimated CRCL calculation 32 ml/min; Estimated Glomerular Filt Rate 41; Glucose 91 mg/dL (65-110); Potassium 3.7 mmol/L (3.4-5.0); Sodium 138 mmol/L (137-145)
--- NOTE | 2023-08-15 12:10 | ED.SOB ---
HPI - SOB/Dyspnea General Chief Complaint: Shortness of Breath/Dyspnea Stated Complaint: shortness of breath Time Seen by Provider: 08/15/23 11:39 History of Present Illness HPI Narrative: Patient is an 83-year-old male with history of COPD, CHF, some laryngeal cancer status post tracheostomy here with shortness of breath. Patient notes that the shortness of breath began about 1 week ago. he notes progressively worsening, associated with a productive cough of thick sputum which she sections out of his tracheostomy site. He notes that he feels similar to when he has had a CHF exacerbation in the past. He denies history of lower extremity swelling when his CHF worsens. His director agency & strategic partnerships is Dr. Chavez here locally. He denies any associated chest pain. Does note they had some nasal congestion with these symptoms and was worried that he may be coming down with something . Denies any diarrhea or abdominal pain. He does not use home oxygen. Related Data Home Medications Medication Instructions Recorded Confirmed allopurinol 100 mg tablet 100 mg PO DAILY 08/15/23 08/15/23 aspirin 81 mg tablet 81 mg PO DAILY 08/15/23 08/15/23 cholecalciferol (vitamin D3) 50 50 mcg PO DAILY 08/15/23 08/15/23 mcg (2,000 unit) tablet colchicine 0.6 mg tablet 0.3 mg PO DAILY 08/15/23 08/15/23 cyanocobalamin (vitamin B-12) 1,000 mcg PO DAILY 08/15/23 08/15/23 1,000 mcg capsule dextromethorphan-guaifenesin 10 1 tablet PO QID 08/15/23 08/15/23 mg-100 mg tablet empagliflozin 25 mg tablet 12.5 mg PO DAILY 08/15/23 08/15/23 ferrous sulfate 324 mg (65 mg 324 mg PO DAILY 08/15/23 08/15/23 iron) tablet,delayed release finasteride 5 mg tablet 5 mg PO DAILY 08/15/23 08/15/23 furosemide 40 mg tablet (Lasix) 60 mg PO BID edema 08/15/23 08/15/23 oxycodone 5 mg tablet 5 mg PO Q6H 08/15/23 08/15/23 potassium chloride 20 mEq oral 20 meq PO DAILY 08/15/23 08/15/23 packet simvastatin 40 mg tablet 40 mg PO HS 08/15/23 08/15/23 tamsulosin 0.4 mg capsule 0.4 mg PO HS 08/15/23 08/15/23 Allergies Allergy/AdvReac Type Severity Reaction Status Date / Time No Known Allergies Allergy Verified 08/15/23 10:25 Review of Systems Review of Systems: All systems reviewed & are unremarkable except as noted in HPI and below PMFSH Past Medical History Medical History (Updated 08/15/23 @ 19:28 by Meri Blas MD) Acquired hypothyroidism Age-related nuclear cataract, bilateral CHF (congestive heart failure) Chronic pain syndrome Combined hyperlipidemia COPD (chronic obstructive pulmonary disease) Elevated TSH Essential hypertension History of bruising easily History of pacemaker History of stress test HLD (hyperlipidemia) Hypertension Hypothyroid Kidney stone Laryngeal cancer x3 Pacemaker Renal cyst Skin cancer Systolic and diastolic CHF, 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 Valvular heart disease Surgical History Surgical History (Updated 08/04/22 @ 09:27 by Lisseth Ocampo MA) H/O aortic valve replacement History of cardiac catheterization History of laryngectomy History of tonsillectomy History of tooth extraction History of umbilical hernia repair Family History Family History Father Family history of cardiovascular disease Mother Family history of cardiovascular disease Social History Social History (Updated 08/04/22 @ 09:25 by Lisseth Ocampo MA) Smoking status: Current some day smoker Tobacco type: cigars Alcohol intake: former Substance use: never Do You Feel Safe in your Home?: Yes Lack of Transportation: No Lack of Food: Never True Current Housing: I Have Housing Concerned About Future Housing: No Difficulty Paying Gas/Electric Bills: No Difficulty Paying for Meds: No Currently Unemployed: No Education: High School Diploma/GED Difficulty w/ Childcare or Family Care: No Gender identity (if verbalized by the patient): M
[2023-08-15 13:41] LABS: Lactic Acid Reflex 1.5 mmol/L (0.7-2.0)
[2023-08-15 13:56] LABS: Partial Thromboplastin Time 30.6 Seconds (22.3-36.8)
[2023-08-15 14:07] LABS: Influenza A QL RT-PCR Negative (Negative); Influenza B QL RT-PCR Negative (Negative); RSV RNA, RT-PCR Negative (Negative); SARS-CoV-2 RNA PCR Negative (Negative)
[2023-08-15 14:21] LABS: NT Pro B Type Natriuretic Pept 14700 pg/mL (19.9-100); Troponin I 0.035 ng/mL (0.000-0.034)
[2023-08-15 15:24] LABS: Appearance Urine Clear (Clear); Bilirubin Urine Negative (Negative); Blood Urine Negative (Negative); Color Urine Yellow (Yellow); Glucose Urine UA Negative (Negative); Ketones Urine Negative (Negative); Leukocyte Esterase Ur Negative LEU/UL (Negative); Nitrate Urine Negative (Negative); Protein Urine Negative (Negative); Urobilinogen Urine 0.2 mg/dL (<2.0)
[2023-08-15 15:36] LABS: Add Urine Microscopic? NO
[2023-08-15] MEDS: FUROSEMIDE INJ 100 MG/10 ML VIAL 60 MG IV PUSH (16:20)
[2023-08-15 19:20] LABS: Troponin I 0.029 ng/mL (0.000-0.034)
--- NOTE | 2023-08-15 20:12 | ADMGEN ---
This patient, Chandrakant Irby, was admitted to 2 Medical Room 260-. Patient/family oriented to hospital policies and general routines including ID bracelet, bed and alarms, visiting hours, pain management, procedures, bathroom and other care routines, personal items, smoking policy, room service/diet, and visiting hours. Information on how to activate the Rapid Response Team has been discussed. Patient/Family are encouraged to report perceived risks to care and to ask questions if they do not understand what they are told or what they should do.
[2023-08-16] VITALS: PULSE 67
[2023-08-16 04:00] VITALS: PULSE 75
[2023-08-16 05:43] VITALS: BP 101/65; PULSE 74; RESP 17; TEMP 36.3; O2SAT 93
--- NOTE | 2023-08-16 06:00 | ECHO_ITS ---
Patient Info Name: Chandrakant Irby Age: 83 years : 1940 Gender: Male Ht: 70 in Wt: 161 lbs BSA: 1.90 m2 HR: 74 bpm BP: 104 / 65 mmHg Heart Rhythm: Paced Technical Quality: Good Exam Date: 08/16/2023 10:10 AM Exam Location: Echo Lab Patient Status: Outpatient Admit Date: 08/15/2023 Staff Ordering Physician: Meri Blas MD Music Education Adjunct Professor: Agustin Chery RDCS Attending Provider: Clari Stevens MD Exam Type: CA echo dop color flow w con Study Info Indications - chf exacerbation Complete two-dimensional, color flow and Doppler transthoracic echocardiogram is performed with contrast to opacify the left ventricle and to improve the deliniation of the left ventricle endocardial borders. Summary 1. Technically somewhat difficult exam, definity contrast injected to improve visualization. 2. Moderate left ventricular enlargement with severe global systolic dysfunction. 3. Sclerotic but not significantly stenotic aortic valve. 4. Moderate mitral regurgitation. 5. Mild tricuspid insufficiency velocities consistent with significant pulmonary hypertension. 6. Electronically paced rhythm. Left Ventricle Left ventricular chamber dimension is moderately enlarged. Left ventricular systolic function is severely reduced, estimated at 25-30%. The left ventricular diastolic function is indeterminate. Right Ventricle Right ventricular chamber dimension is normal. Left Atria Left atrial chamber dimension is severely enlarged. Right Atria Right atrial chamber dimension is moderately enlarged. Aortic Valve The aortic valve is trileaflet. There is mild aortic valve stenosis with a peak velocity of 145.20 cm/s, mean gradient of 4 mmHg, and aortic valve area of 2.35 cm2. Pulmonic Valve The pulmonic valve is not well visualized. Mitral Valve The mitral valve has normal leaflets. There is moderate mitral valve regurgitation. Tricuspid Valve The tricuspid valve leaflets are normal. There is mild tricuspid valve regurgitation. Severe pulmonary hypertension, estimated pulmonary arterial systolic pressure is 62 mmHg. Pericardium/Pleural The pericardium appears normal. Aorta The aortic root size at the sinus of Valsalva is normal. Left Ventricular Outflow Tract Name Value Normal LVOT 2D LVOT Diameter 2.19 cm LVOT Doppler LVOT Peak Gradient 2 mmHg LVOT Mean Gradient 1 mmHg LVOT VTI 15.06 cm LVOT VTI/AV VTI Ratio 0.63 LVOT Stroke Volume 56.59 ml LVOT CO 4.63 l/min LVOT CI 2.43 L/min/m2 Pulmonic Valve Name Value Normal RVOT Doppler RVOT Peak Gradient 1 mmHg PV Doppler PV Peak Gradient 2 mmHg Mitral Valve
--- NOTE | 2023-08-16 06:04 | PCRCNOTE ---
Pt has an established laryngectomy in place. Rosa tube is a provox life size 10. Laryngectomy established in 2008. Trach bag and ambu bag at bedside. Suction available to pt.
[2023-08-16 07:58] LABS: Basophils Percent Auto 0.6 % (0.2-1.2); Eosinophils Absolute Auto 0.5 K/mm3 (0-0.3); Eosinophils Percent Auto 7.5 % (0-4.4); Hematocrit 40.2 % (42.0-52.0); Hemoglobin 13.3 g/dL (14.0-18.0); Immature Granulocyte Absolute 0.01 K/mm3 (0.00-0.031); Immature Granulocyte Percent A 0.2 % (0-0.5); Lymphocytes Absolute Auto 0.99 K/mm3 (0.9-3.2); Lymphocytes Percent Auto 15.2 % (18.3-44.2); Mean Corpuscular HGB Conc 33.1 g/dl (32-36); Mean Corpuscular Volume 99.8 fl (80-100); Mean Platelet Volume 9.7 fl (7.4-10.4); Monocytes Absolute Auto 0.5 K/mm3 (0.1-0.6); Monocytes Percent Auto 6.9 % (2.6-8.5); Neutrophils Absolute Auto 4.5 K/mm3 (1.3-6.7); Neutrophils Percent Auto 69.6 % (45.5-73.1); Platelet Count Result 113 k/mm3 (150-375); Red Blood Count 4.03 M/mm3 (4.6-6.20); Red Cell Distribution Width 13.9 % (11.5-14.5); White Blood Count 6.5 K/mm3 (4.5-10.0)
[2023-08-16 08:08] VITALS: BP 117/82; PULSE 67; RESP 18; TEMP 36.4; O2SAT 93
[2023-08-16 08:11] LABS: Anion Gap 7 mmol/L (4-12); Blood Urea Nitrogen 51 mg/dL (9-20); Calcium 9.3 mg/dL (8.4-10.2); Carbon Dioxide 29 mmol/L (22-30); Chloride 102 mmol/L (98-107); Estimated CRCL calculation 32 ml/min; Estimated Glomerular Filt Rate 41; Glucose 90 mg/dL (65-110); Sodium 138 mmol/L (137-145)
--- NOTE | 2023-08-16 08:43 | PM.IMHP ---
H&P: HPI History of Present Illness Date/Time: 08/16/23 08:43 Chief Complaint: SOB, dyspnea Narrative: Patient is an 83 YO male with PMH of COPD, CHF, some laryngeal cancer status post tracheostomy admitted for shortness of breath. Patient reports SOB x 1 week with a productive cough of thick sputum. He has had CHF exacerbations in the past. He sees Dr. Chavez who has been consulted for this hospitalization. Denies chest pain, abdominal pain, N/V. He does not use oxygen at baseline. CXR negative for acute process. CT negative for PE, showed tiny left pleural effusion. BC pending. Initial trop elevated, but second WNL. BNP elevated 73415. UA negative for infection and respiratory panel negative. Currently satting >90% on room air. 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 Valvular heart disease Surgical History Surgical History H/O aortic valve replacement History of cardiac catheterization History of laryngectomy History of tonsillectomy History of tooth extraction History of umbilical hernia repair Family History Family History Father Family history of cardiovascular disease Mother Family history of cardiovascular disease Social History Social History Smoking status: Current some day smoker Tobacco type: cigars Alcohol intake: former Substance use: never Do You Feel Safe in your Home?: Yes Lack of Transportation: No Lack of Food: Never True Current Housing: I Have Housing Concerned About Future Housing: No Difficulty Paying Gas/Electric Bills: No Difficulty Paying for Meds: No Currently Unemployed: No Education: High School Diploma/GED Difficulty w/ Childcare or Family Care: No Gender identity (if verbalized by the patient): Male Spiritual care concerns: No Meds Home Medications and Allergies Home Medications Medication Instructions Recorded Confirmed Type allopurinol 100 mg tablet 100 mg PO DAILY 08/15/23 08/15/23 History aspirin 81 mg tablet 81 mg PO DAILY 08/15/23 08/15/23 History cholecalciferol (vitamin D3) 50 50 mcg PO DAILY 08/15/23 08/15/23 History mcg (2,000 unit) tablet colchicine 0.6 mg tablet 0.3 mg PO DAILY 08/15/23 08/15/23 History cyanocobalamin (vitamin B-12) 1,000 mcg PO DAILY 08/15/23 08/15/23 History 1,000 mcg capsule dextromethorphan-guaifenesin 10 1 tablet PO QID 08/15/23 08/15/23 History mg-100 mg tablet empagliflozin 25 mg tablet 12.5 mg PO DAILY 08/15/23 08/15/23 History ferrous sulfate 324 mg (65 mg 324 mg PO DAILY 08/15/23 08/15/23 History iron) tablet,delayed release finasteride 5 mg tablet 5 mg PO DAILY 08/15/23 08/15/23 History furosemide 40 mg tablet (Lasix) 60 mg PO BID edema 08/15/23 08/15/23 History oxycodone 5 mg tablet 5 mg PO Q6H 08/15/23 08/15/23 History potassium chloride 20 mEq oral 20 meq PO DAILY 08/15/23 08/15/23 History packet simvastatin 40 mg tablet 40 mg PO HS 08/15/23 08/15/23 History tamsulosin 0.4 mg capsule 0.4 mg PO HS 08/15/23 08/15/23 History Allergies Allergy/AdvReac Type Severity Reaction Status Date / Time No Known Allergies Allergy Verified 08/15/23 10:25 Vital Signs Vital Signs - 24 hr 08/15/23 10:39 08/15/23 11:20 08/15/23 11:09 Temperature 97.1 F L Pulse Rate 82
[2023-08-16] MEDS: ASPIRIN 81 MG ENTERIC TABLET PO (09:00)
[2023-08-16] MEDS: allopurinoL 100 MG TABLET PO (09:00)
[2023-08-16] MEDS: FERROUS SULFATE 325 MG TABLET DR PO (09:01)
[2023-08-16] MEDS: FINASTERIDE 5 MG TABLET PO (09:01)
[2023-08-16] MEDS: CYANOCOBALAMIN 1,000 MCG TABLET 1000 MCG PO (09:01)
[2023-08-16] MEDS: COLCHICINE 0.3 MG TABLET PO (09:01)
[2023-08-16] MEDS: CHOLECALCIFEROL 1,000 UNITS TABLET 2000 UNITS PO (09:01)
[2023-08-16] MEDS: EMPAGLIFLOZIN 12.5 MG TABLET PO (09:01)
[2023-08-16] MEDS: POTASSIUM CHLORIDE 20 MEQ PACKET (FOR LIQUID) PO (09:01)
[2023-08-16] MEDS: FUROSEMIDE INJ 100 MG/10 ML VIAL 60 MG IV PUSH (09:02)
--- NOTE | 2023-08-16 09:32 | PM.CNCAR ---
Assessment and Plan Assessment and plan (1) Systolic and diastolic CHF, chronic: Code(s): I50.42 - Chronic combined systolic (congestive) and diastolic (congestive) heart failure Status: Acute Assessment and Plan: Has known chronic systolic heart failure. Has been having increased phlegm production. CXR shows clear lungs, no evidence of pulmonary edema or pleural effusions. Chest CTA shows no evidence of PE, a very tiny left pleural effusion, calcified right basilar pleural plaque. He has no lower extremity edema. On examination, he clinically appears euvolemic. At this point, I do not believe patient is in decompensated heart failure. Will stop his IV Lasix and resume his home dose of PO Lasix 60mg BID. From my standpoint, he can be discharged home later today. (2) Hypertension: Code(s): I10 - Essential (primary) hypertension Status: Acute Assessment and Plan: Daughter states that [facility] as his blood pressures were low, however, patient has still been taking them not realizing he was not supposed to to take them. Has been having increased weakness at home. His systolic blood pressures here are 90s - 110s mmHg. Agree with him staying off of blood pressure medications to avoid hypotension. (3) History of pacemaker: Code(s): Z95.0 - Presence of cardiac pacemaker Status: Acute Assessment and Plan: Scheduled to see Birch as his current device is nearing JUAN. (4) H/O aortic valve replacement: Code(s): Z95.2 - Presence of prosthetic heart valve Status: Acute Plan Recommendations and plan discussed with Hospitalist. History of Present Illness History of Present Illness Consult date/time: 08/16/23 09:32 Requesting physician: Meri Blas MD Consult reason: congestive heart failure Reason For Visit: CHF Exacerbation Narrative: We are consulted for CHF. This is an 83 year old patient of Dr. Chavez'latrice with chronic systolic heart failure, severe aortic valve stenosis s/p bioprosthetic aortic valve replacement in 2008 at [place], heart block following valve surgery s/p implantation of [employer] dual-chamber pacemaker (device is in abdominal position), history of laryngeal malignancy s/p tracheostomy. Patient has been having increasing phlegm production which has to be suctioned out of his tracheostomy site. No lower extremity edema. Patient also noted some nasal congestion. Daughter at bedside to provide additional history. States that the [facility] all [facility] blood [facility] as his blood pressures were low, however, patient has still been taking them. Has been having increased weakness at home. He was given a dose of IV Lasix in the ED yesterday. ER workup showed EKGs with atrial paced, ventricular paced rhythm with PVCs. Troponin of 0.035, 0.029. NT pro BNP of 14,700. CXR shows clear lungs, no evidence of pulmonary edema or pleural effusions. Chest CTA was done which showed no evidence of PE, a very tiny left pleural effusion, calcified right basilar pleural plaque. Review of Systems Review of Systems: All systems reviewed & are unremarkable except as noted in HPI and below (HPI) [facility] Past Medical History Medical History (Updated 08/16/23 @ 09:44 by Josephine Mason MD) Acquired hypothyroidism Age-related nuclear cataract, bilateral CHF (congestive heart failure) Chronic pain syndrome Combined hyperlipidemia COPD (chronic obstructive pulmonary disease) Elevated TSH Essential hypertension History of bruising easily History of pacemaker History of stress test HLD (hyperlipidemia) Hypertension Hypothyroid Kidney stone Laryngeal cancer x3 Pacemaker Renal cyst Skin cancer Systolic and diastolic CHF, 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
[2023-08-16] MEDS: PERFLUTREN LIPID MICROSPHERES 1.5 ML VIAL DILUTED TO 10 ML TOTAL VOLUME IV PUSH (10:00)
--- NOTE | 2023-08-16 10:22 | PM.SD2 ---
Same Day Admit/Disch: HPI History of Present Illness Chief complaint: CHF Exacerbation Narrative: Chandrakant Irby is a 83 year old male with PMH of COPD, CHF, some laryngeal cancer status post tracheostomy admitted for shortness of breath. Patient reports SOB x 1 week with a productive cough of thick sputum. He has had CHF exacerbations in the past. He sees Dr. Chavez who has been consulted for this hospitalization. Denies chest pain, abdominal pain, N/V. He does not use oxygen at baseline. 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eterization History of laryngectomy History of tonsillectomy History of tooth extraction History of umbilical hernia repair Family History Family History Father Family history of cardiovascular disease Mother Family history of cardiovascular disease Social History Social History Smoking status: Current some day smoker Tobacco type: cigars Alcohol intake: former Substance use: never Do You Feel Safe in your Home?: Yes Lack of Transportation: No Lack of Food: Never True Current Housing: I Have Housing Concerned About Future Housing: No Difficulty Paying Gas/Electric Bills: No Difficulty Paying for Meds: No Currently Unemployed: No Education: High School Diploma/GED Difficulty w/ Childcare or Family Care: No Gender identity (if verbalized by the patient): Male Spiritual care concerns: No Same Day Admit/Disch: Med Pre-admit Medications Home Medications Medication Instructions Recorded Confirmed Type allopurinol 100 mg tablet 100 mg PO DAILY 08/15/23 08/15/23 History aspirin 81 mg tablet 81 mg PO DAILY 08/15/23 08/15/23 History cholecalciferol (vitamin D3) 50 50 mcg PO DAILY 08/15/23 08/15/23 History mcg (2,000 unit) tablet colchicine 0.6 mg tablet 0.3 mg PO DAILY 08/15/23 08/15/23 History cyanocobalamin (vitamin B-12) 1,000 mcg PO DAILY 08/15/23 08/15/23 History 1,000 mcg capsule dextromethorphan-guaifenesin 10 1 tablet PO QID 08/15/23 08/15/23 History mg-100 mg tablet empagliflozin 25 mg tablet 12.5 mg PO DAILY 08/15/23 08/15/23 History ferrous sulfate 324 mg (65 mg 324 mg PO DAILY 08/15/23 08/15/23 History iron) tablet,delayed release finasteride 5 mg tablet 5 mg PO DAILY 08/15/23 08/15/23 History furosemide 40 mg tablet (Lasix) 60 mg PO BID edema 08/15/23 08/15/23 History oxycodone 5 mg tablet 0.5 mg PO Q6H 08/15/23 08/16/23 History potassium chloride 20 mEq oral 20 meq PO DAILY 08/15/23 08/15/23 History packet simvastatin 40 mg tablet 40 mg PO HS 08/15/23 08/15/23 History tamsulosin 0.4 mg capsule 0.4 mg PO HS 08/15/23 08/15/23 History Review of Systems Review of Systems obtained via All systems reviewed & are unremarkable except as noted in HPI and below ROS unobtainable: Yes unobtainable due to endotracheal tube DS: Data Data Completed and Pending Labs on day of discharge: Labs from last 24 hours 08/16/23 08/15/23 08/15/23 07:50 18:51 15:01 WBC 6.5 RBC 4.03 L Hgb 13.3 L Hct 40.2 L MCV 99.8 MCH 33.0 MCHC 33.1 RDW 13.9 Plt Count 113 L MPV 9.7 Immature Gran % (Auto) 0.2 Neut
--- NOTE | 2023-08-16 11:39 | IVDEFINITY ---
Prior to administration of IV Definity the patient was educated on the risks and benefits of the imaging enhancing agent including potential adverse side effects. The patient verbalized understanding. Allergies were verified. No exclusion criteria were identified and at least one of the following inclusion criteria were met: 1) physician request, 2) patient technically difficult to image (per the [place] [employer]chocardi[employer] guidelines of two or more segments not discernable within the apical view), or 3) questionable left ventricular function. ?
--- NOTE | 2023-08-23 08:08 | PC.NURSE ---
Blood cx are negative.
== END 2023-08-16 13:15 | disposition home or self-care (01) ==
LOC: ANHED 12:28 → ANH2MED 18:45
PROVIDERS: Nurse Practitioner; Admitting Provider General Practice; Emergency Provider Student in an Organized Health Care Education/Training Program; Visit Provider General Practice
DX: I11.0 Hypertensive heart disease with heart failure (principal); I50.42 Chronic combined systolic (congestive) and diastolic (congestive) heart failure; J44.9 Chronic obstructive pulmonary disease, unspecified; G89.4 Chronic pain syndrome; E78.2 Mixed hyperlipidemia; I08.3 Combined rheumatic disorders of mitral, aortic and tricuspid valves; F17.290 Nicotine dependence, other tobacco product, uncomplicated; Z95.0 Presence of cardiac pacemaker; Z85.21 Personal history of malignant neoplasm of larynx; Z93.0 Tracheostomy status; Z79.82 Long term (current) use of aspirin; Z79.84 Long term (current) use of oral hypoglycemic drugs; Z79.891 Long term (current) use of opiate analgesic; Z95.2 Presence of prosthetic heart valve; Z20.822 Contact with and (suspected) exposure to COVID-19
CPT/HCPCS: 36415; 71045; 71275; 80048; 80053; 81003; 83605; 83880; 84484; 85025; 85610; 85730; 86140; 87040; 87637; 93005; 96374; 96375; 96376; 99285; A9270; C8929; G0378; J1940; Q9957; Q9967

== ENCOUNTER 2023-11-23 13:22 | Emergency (ER) | payer MEDICARE, OTHER, SELFPAY ==
[2023-11-23] VITALS (9 sets, daily range): BP systolic 108–128; BP diastolic 27–82; PULSE 61–85; RESP 16–18; TEMP 36.5–36.6; O2SAT 95–98
--- NOTE | ~2023-11-23 | CT_ITS ---
EXAMINATION: CTA chest PE protocol DATE: 11/23/2023 17:22 INDICATION: Hemoptysis, elevated dimer TECHNIQUE: Computed tomography angiography (CTA) of the chest was performed with 100 mL Omnipaque-350 intravenous contrast timed to evaluate the pulmonary arteries. Coronal maximum intensity projection 3D-reconstructions were created by the technologist. The dose-length product (DLP) was 445.42 mGy-cm. Automated exposure control and iterative reconstruction technique were employed. COMPARISON: 08/15/2023. FINDINGS: Lung parenchyma and airways: Mild septal thickening. Scattered groundglass opacities. Bilateral depen dent scar/atelectasis. Tracheostomy tube, in good position. Patent airways. Pleura: Trace left pleural fluid. Bilateral pleural thickening. Pleural calcification on the right, m ay be secondary to asbestos related pleural disease or prior right hemothorax. Thoracic inlet, axillae and chest wall: Moderate bilateral gynecomastia. Thoracic aorta: Ascending aortic ectasia to 4.3 cm. Atherosclerotic calcifications. Mediastinum: Dilated central pulmonary arteries as can be seen with pulmonary arterial hypertension. Heart and pericardium: Cardiomegaly. Aortic valve replacement. No pericardial effusion. Epicardial pa cing wires. Coronary artery calcifications: Mild. Upper abdomen: No significant finding. Bones: No acute osseous finding. Pulmonary arteries: Study quality: Adequate. No pulmonary emboli detected. IMPRESSION: No CT evidence of acute pulmonary embolus. Mild interstitial edema. Small left pleural effusion. Reviewed, dictated and finalized at location K.
--- NOTE | 2023-11-23 13:35 | ED.RECABL ---
HPI - Recheck/Abnormal Lab/Rx General Chief Complaint: Recheck/Abnormal Lab/Rx <Wendy Martinez PA-C - Last Filed: 11/24/23 17:18> Stated Complaint: coughing up blood <Wendy Martinez PA-C - Last Filed: 11/24/23 17:18> Time Seen by Provider: 11/23/23 13:36 <Wendy Martinez PA-C - Last Filed: 11/24/23 17:18> Focused HPI: This is an 83-year-old male that presents to the emergency department for hemoptysis. Ongoing over the last 3 days. Patient also reports having a cold. Reports cough, congestion. GENERAL: Well-appearing, well-nourished, and in no acute distress. HEAD: Normocephalic, atraumatic. CHEST: No respiratory distress. Lung sounds are coarse with scattered wheezing HEART: Regular rate and rhythm.? NEURO: ?Alert and oriented x3. Patient screened in triage and initial orders placed.? ?Additional care and disposition to be based upon?diagnostic testing and treatment. <Wendy Martinez PA-C - Last Filed: 11/24/23 17:18> Source: patient <ANAND Ramirez Last Filed: 11/24/23 17:18> Mode of arrival: ambulatory <Wendy Martinez PA-C - Last Filed: 11/24/23 17:18> Limitations: no limitations <ANAND Ramirez Last Filed: 11/24/23 17:18> History of Present Illness HPI narrative: Agree with above HPI. Has tracheostomy due to Hx of laryngeal cancer. Reports blood clots being mixed in with his sputum. States this has happened before. Denies hx of PE. Not on any anticoagulations. Denies SOB, fevers, CP, BLE pain or swelling. <Josette Abernathy PA-C - Last Filed: 11/23/23 21:25> Related Data Home Medications: Home Medications Medication Instructions Recorded Confirmed allopurinol 100 mg tablet 100 mg PO DAILY 08/15/23 08/15/23 aspirin 81 mg tablet 81 mg PO DAILY 08/15/23 08/15/23 cholecalciferol (vitamin D3) 50 50 mcg PO DAILY 08/15/23 08/15/23 mcg (2,000 unit) tablet colchicine 0.6 mg tablet 0.3 mg PO DAILY 08/15/23 08/15/23 cyanocobalamin (vitamin B-12) 1,000 mcg PO DAILY 08/15/23 08/15/23 1,000 mcg capsule dextromethorphan-guaifenesin 10 1 tablet PO QID 08/15/23 08/15/23 mg-100 mg tablet empagliflozin 25 mg tablet 12.5 mg PO DAILY 08/15/23 08/15/23 ferrous sulfate 324 mg (65 mg 324 mg PO DAILY 08/15/23 08/15/23 iron) tablet,delayed release finasteride 5 mg tablet 5 mg PO DAILY 08/15/23 08/15/23 furosemide 40 mg tablet (Lasix) 60 mg PO BID edema 08/15/23 08/15/23 oxycodone 5 mg tablet 0.5 mg PO Q6H 08/15/23 08/16/23 potassium chloride 20 mEq oral 20 meq PO DAILY 08/15/23 08/15/23 packet simvastatin 40 mg tablet 40 mg PO HS 08/15/23 08/15/23 tamsulosin 0.4 mg capsule 0.4 mg PO HS 08/15/23 08/15/23 <Wendy Martinez PA-C - Last Filed: 11/24/23 17:18> Allergies/Adverse Reactions: Allergies Allergy/AdvReac Type Severity Reaction Status Date / Time No Known Allergies Allergy Verified 11/23/23 13:34 <Wendy Martinez PA-C - Last Filed: 11/24/23 17:18> Review of Systems Review of Systems: CONSTITUTIONAL: Denies fever, chills, or sweats. CARDIOVASCULAR: Denies chest pain, palpitations, or edema. RESPIRATORY: See HPI. MUSCULOSKELETAL: Denies back pain, extremity pain, myalgia. <Josette Abernathy PA-C - Last Filed: 11/23/23 21:25> All systems reviewed & are unremarkable except as noted in HPI and below <Josette Abernathy PA-C - Last Filed: 11/23/23 21:25> PMFSH Past Medical History Medical History: Medical History Acquired hypothyroidism Age-related nuclear cataract, bilateral CHF (congestive heart failure) Chronic pain syndrome Combined hyperlipidemia COPD (chronic obstructive pulmonary disease) Elevated TSH Essential hypertension History of bruising easily History of pacemaker History of stress test HLD (hyperlipidemia) Hypertension Hypothyroid Kidney stone Laryngeal cancer x3 Pacemaker Renal cyst Skin cancer Systolic and diastolic C
[2023-11-23 14:19] LABS: Basophils Absolute Auto 0.1 K/mm3 (0.0-0.1); Basophils Percent Auto 0.9 % (0.2-1.2); Eosinophils Absolute Auto 0.6 K/mm3 (0-0.3); Eosinophils Percent Auto 10.1 % (0-4.4); Hematocrit 35.7 % (42.0-52.0); Hemoglobin 11.8 g/dL (14.0-18.0); Immature Granulocyte Absolute 0.02 K/mm3 (0.00-0.031); Immature Granulocyte Percent A 0.4 % (0-0.5); Immature Platelet Fraction Pct 1.6 % (0.9-11.2); Lymphocytes Absolute Auto 0.95 K/mm3 (0.9-3.2); Lymphocytes Percent Auto 17.2 % (18.3-44.2); Mean Corpuscular HGB Conc 33.1 g/dl (32-36); Mean Corpuscular Hemoglobin 34.5 pg (26-34); Mean Corpuscular Volume 104.4 fl (80-100); Mean Platelet Volume 9.8 fl (7.4-10.4); Monocytes Absolute Auto 0.5 K/mm3 (0.1-0.6); Monocytes Percent Auto 8.3 % (2.6-8.5); Neutrophils Absolute Auto 3.5 K/mm3 (1.3-6.7); Neutrophils Percent Auto 63.1 % (45.5-73.1); Platelet Count Result 106 k/mm3 (150-375); Red Blood Count 3.42 M/mm3 (4.6-6.20); Red Cell Distribution Width 13.6 % (11.5-14.5); White Blood Count 5.5 K/mm3 (4.5-10.0)
[2023-11-23 14:28] LABS: Alanine Aminotransferase 20 U/L (6-50); Albumin Level 3.6 g/dL (3.5-5.1); Alkaline Phosphatase 108 U/L (38-126); Anion Gap 9 mmol/L (4-12); Aspartate Amino Transferase 32 U/L (17-59); Bilirubin,Total 0.8 mg/dL (0.2-1.3); Blood Urea Nitrogen 53 mg/dL (9-20); Calcium 8.6 mg/dL (8.4-10.2); Carbon Dioxide 29 mmol/L (22-30); Chloride 101 mmol/L (98-107); Estimated CRCL calculation 30 ml/min; Estimated Glomerular Filt Rate 39; Glucose 133 mg/dL (65-110); Potassium 4.2 mmol/L (3.4-5.0); Sodium 139 mmol/L (137-145)
[2023-11-23 14:29] LABS: D Dimer 1.25 ug/mL (<0.48)
[2023-11-23 14:48] LABS: INR 1.1; Prothrombin Time 14.3 Seconds (11.1-14.7)
[2023-11-23 14:49] LABS: Partial Thromboplastin Time 30.1 Seconds (22.3-36.8)
[2023-11-23 15:04] LABS: Influenza A QL RT-PCR Negative (Negative); Influenza B QL RT-PCR Negative (Negative); RSV RNA, RT-PCR Negative (Negative); SARS-CoV-2 RNA PCR Negative (Negative)
[2023-11-23 18:05] LABS: NT Pro B Type Natriuretic Pept 10700 pg/mL (19.9-100)
[2023-11-23] MEDS: FUROSEMIDE INJ 40 MG/4 ML VIAL IV PUSH (19:54)
== END 2023-11-23 21:22 | disposition home or self-care (01) ==
PROVIDERS: Physician Assistant; Emergency Provider Physician Assistant
DX: I50.43 Acute on chronic combined systolic (congestive) and diastolic (congestive) heart failure (principal); I11.0 Hypertensive heart disease with heart failure; J40 Bronchitis, not specified as acute or chronic; R04.2 Hemoptysis; I38 Endocarditis, valve unspecified; E03.9 Hypothyroidism, unspecified; E78.2 Mixed hyperlipidemia; J44.9 Chronic obstructive pulmonary disease, unspecified; F17.290 Nicotine dependence, other tobacco product, uncomplicated; Z93.0 Tracheostomy status; Z95.0 Presence of cardiac pacemaker; Z95.2 Presence of prosthetic heart valve; Z87.442 Personal history of urinary calculi; Z85.828 Personal history of other malignant neoplasm of skin; Z85.21 Personal history of malignant neoplasm of larynx; Z79.82 Long term (current) use of aspirin; Z79.899 Other long term (current) drug therapy
CPT/HCPCS: 36415; 71275; 80053; 83880; 85025; 85055; 85380; 85610; 85730; 86850; 86900; 86901; 87637; 96374; 99284; J1940; Q9967

== ENCOUNTER 2025-03-29 17:54 | Emergency (ER) | payer MEDICARE, SELFPAY ==
[2025-03-29] VITALS (12 sets, daily range): BP systolic 49–123; BP diastolic 29–47; PULSE 70–82; RESP 16–18; O2SAT 95–100
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
[2025-03-29] MEDS: NOREPINEPHRINE 8 MG/D5W 250 ML 8 MG/250 ML BAG 0.9 MG (18:04)
--- NOTE | 2025-03-29 18:05 | ECG_ITS ---
Test Date: 2025-03-29 18:05:32 Measurements Intervals [place] Rate: 75 P: 259 DC: 174 QRS: -51 QRSD: 246 T: 130 QT: 531 QTc: 593 Interpretive Statements ELECTRONIC ATRIAL PACEMAKER ELECTRONIC VENTRICULAR PACEMAKER ABNORMAL ECG No previous ECG available for comparison Electronically Signed On 03-31-2025 09:11:00 STONE SPLITTER by Oral Chavez M.D.
--- NOTE | 2025-03-29 18:08 | PC.NURSE ---
negative fast exam
--- OUTSIDE RECORDS SUMMARY | 2025-03-29 18:21 | XMS_ITS | Clinical Summary ---
Author Organization [facility] Robert pollard [facility] Address [address] [place] [address] Care Team Providers Care Surgical Coordinator Name Role Phone Destin Rogers MD Primary Care Provider [phone] Allergies No known active allergies Medications tamsulosin (FLOMAX) 0.4 mg capsule TAKE 1 CAPSULE BY MOUTH EVERY EVENING APPROXIMATELY 30 MINUTES AFTER THE SAME MEAL EACH DAY (FOR PROSTATE) 09/30/19 17 Active simvastatin (ZOCOR) 80 mg tablet TAKE ONE-HALF TABLET BY MOUTH EVERY EVENING TO LOWER CHOLESTEROL (REPORT ANY MUSCLE PAIN OR WEAKNESS) 04/24/20 19 Active potassium chloride (K-TAB) 20 mEq Extended Release tablet 20 mEq. 09/30/19 17 Active naloxone (NARCAN) 4 mg/spray [place], Non-Aerosol USE 1 SPRAY (4MG) INTO ONE NOSTRIL ONLY ONE-TIME FOR OPIOID OVERDOSE. ADMINISTER 1 SPRAY ONLY. IF NO RESPONSE WITHIN 2-3 MINUTES, ADMINISTER 2ND SPRAY INTO OTHER NOSTRIL. IF ONE DOSE FROM RESCUE PACK IS USED, CONTACT CLINIC FOR REPLACEMENT. 04/16/20 19 Active lisinopriL (PRINIVIL) 10 mg tablet TAKE ONE-HALF TABLET BY MOUTH ONCE A DAY FOR HEART OR BLOOD PRESSURE 04/09/20 19 Active Levothyroxine (Tirosint) 150 mcg Capsule 150 mcg. 02/01/20 14 Active guaiFENesin (MUCINEX) 600 mg Extended Release Biphasic tablet Take 1,200 mg by mouth. Active furosemide (LASIX) 20 mg tablet TAKE ONE TABLET BY MOUTH EVERY MORNING FOR FLUID RETENTION. NOTE DOSE CHANGE. 08/31/19 20 Active ferrous sulfate 325 mg (65 mg iron) tablet TAKE ONE TABLET BY MOUTH ONCE A DAY FOR IRON SUPPLEMENTATION. 08/31/19 20 Active cyanocobalamin (VITAMIN B-12) 100 mcg tablet TAKE TWO TABLETS BY MOUTH ONCE A DAY FOR B12 SUPPLEMENTATION 04/29/20 19 Active Clotrimazole (MYCELEX) 10 mg Felicit[place] 11/26/19 20 Active chlorthalidone (HYGROTON) 25 mg tablet TAKE 1/2 TABLET BY MOUTH DAILY 09/17/19 18 Active carvediloL (COREG) 25 mg tablet TAKE ONE TABLET BY MOUTH TWICE A DAY FOR HEART. TAKE WITH FOOD. 10/04/19 18 Active Aspirin 650 mg Tablet, Delayed Release (E.C.) TAKE ONE TABLET BY MOUTH ONCE A DAY FOR HEART OR CIRCULATION. TAKE WITH FOOD. 04/24/20 19 Active portable oxygen Administer 2 L/min in each nostril. Active Active Problems No known active problems Family History Medical History Relation Name Comments Heart Disease Father Cancer Mother Heart Disease Mother Heart Disease Sister Relation Name Status Comments Brother Alive Father Mother Sister Social History Tobacco Use Types Packs/Day Years Used Date Smoking Tobacco: Every Day Cigarettes 1 25 Cigars Smokeless Tobacco: Never Alcohol Use Standard Drinks/Week Comments Yes 1 (1 standard drink = 0.6 oz pur e alcohol) OCASSIONLLY Sex and Gender Information Value Date Recorded Sex Assigned at Not on file Legal Sex Male 9:10 AM CDT Gender Identity Not on file Sexual Orientation Not on file Last Filed Vital Signs Vital Sign Reading Time Taken Comments Blood Pressure 115/42 01/03/2020 2:30 PM CDT 1ST BP TAKE 107/53 HR 76 Pulse 68 01/03/2020 2:30 PM CDT Temperature 36.8 C (98.2 F) 01/03/2020 2:30 PM CDT Respiratory Rate - - Oxygen Saturation 96% 01/03/2020 2:3 0 PM CDT Inhaled Oxygen Concentration - - Weight 92 kg (202 lb 14.4 oz) 01/03/2020 2:30 PM CDT Height 177.8 cm (5' 10) 01/03/2020 2:3 0 PM CDT Body Mass Index 29.11 01/03/2020 2:30 PM CDT Plan of Treatment Health Maintenance Due Date Last Done Comments DTAP/TDAP/TD VACCINES (1 - Tdap) 07/27/1958 ZOSTER VACCINE (1 of 2) 07/27/1989 RSV VACCINE (60+ or ) (1 - 1-dose 75+ series) 07/27/2014 PNEUMOCOCCAL VACCINE 50+ YEA RS (2 of 2 - PCV20 or PCV21) 01/23/2020 01/22/2019 INFLUENZA VACCINE (#1) 2024 01/22/2019 Care Teams Surgical Coordinator Relationship Specialty Start Date End Date Destin Rogers MD [address] [place] [id number] PCP - General Emergency Medicine 12/21/19
--- OUTSIDE RECORDS SUMMARY | 2025-03-29 18:21 | XMS_ITS | Encounter Summary ---
Author Organization [facility] Address [address] [facility] [address] [place] [id number] Care Team Providers Care Office Clerk Routine Name Role Phone Franklyn Gray MD Primary Care Provider + [phone] Franklyn Gray MD Primary Care Provider + [phone] Russ Sanchez MD Primary Care Provider [phone] Russ Sanchez MD Primary Care Provider [phone] Franklyn Gray MD Primary Care Provider + [phone] Russ Sanchez MD Primary Care Provider [phone] Heather Cavazos BRAZING MACHINE OPERATOR HELPER Unavailable [phone] Fabienne Kauffman BRAZING MACHINE OPERATOR HELPER Unavailable [phone] No, Physician Primary Care Provider Zehra Goss NP Primary Care Provider [phone] Destin Rogers MD Primary Care Provider [phone] Damien Pimentel MD Primary Care Provider [phone] Krupa Gibbs MD Primary Care Provid er Encounter Details Date Type Department Care Team (Late st Contact Info) Description 07/22/2016 Orders Only [facility] ProviderCarter MD [address] [place] [address] Social History Tobacco Use Types Packs/Day Years Used Date Smoking Tobacco: Former Cigarettes Q uit: 05/02/2007 Alcohol Use Standard Drinks/Week Comments Yes 0 (1 standard drink = 0.6 oz pur e alcohol) Sex and Gender Information Value Date Recorded Sex Assigned at Not on file Legal Sex Male 2:25 AM SOLE TACKER Gender Identity Male 12/19/2020 11:20 AM CDT Sexual Orientation Not on file documented as of this encounter Plan of Treatment Not on file documented as of this encounter Procedures Procedure Name Priority Date/Time Associated Diagnosis Comments CARDIOLOGY REPORT 07/22/2016 documented in this encounter Results * CARDIOLOGY REPORT (07/22/2016) Anatomical Region Laterality Modality Other Narrative 07/22/2016 Ordered by an unspecified provider. us Historical Provider [facility] Final Result documented in this encounter Visit Diagnoses Not on filedocumented in this encounter Care Teams Office Clerk Routine Relationship Specialty Start Date End Date Franklyn Gray MD [address] [place] [address] PCP - General 07/30/16 05/03/17 Franklyn Gray MD [address] [place] [address] PCP - General 11/09/12 07/29/16 Russ Sanchez MD [address] [facility] [address] [address] PCP - General Internal Medicine 05/04/17 05/26/17 Russ Sanchez MD [address] [address] PCP - General 05/27/17 05/30/17 Franklyn Gray MD [address] [place] [address] PCP - General 05/31/17 09/07/17 Russ Sanchez MD [address] [facility] [address] [place] [address] PCP - General Internal Medicine 09/08/17 01/08/19 No, Physician PCP - General 01/09/19 08/29/19 Zehra Goss, HAND CLOTH FOLDER PCP - General Nurse Practitioner 08/30/19 01/16/20 Destin Rogers MD PCP - General Emergency Medicine 01/17/20 06/02/20 Damien Pimentel MD PCP - General Family Medicine 03/04/22 10/10/23 Krupa Gibbs MD [address] [place] [address] PCP - General Family Practice 10/11/23 Heather Cavazos, BRAZING MACHINE OPERATOR HELPER [address] [place], [place] [id number] Speech Language Pathologist Speech Therapy 10/13/17 Fabienne Kauffman, FARIHA [facility] [address] [place], [place] [id number] Speech Language Pathologist Speech Therapy 11/15/17 documented as of this encounter
--- OUTSIDE RECORDS SUMMARY | 2025-03-29 18:21 | XMS_ITS | Encounter Summary ---
Author Organization [facility] Address [address] [place] [address] Phone Care Team Providers Care Recruitment Specialist Name Role Phone Heather Cavazos DECK MATE Unavailable [phone] Fabienne Kauffman DECK MATE Unavailable [phone] Krupa Gibbs MD Primary Care Provid er Encounter Details Date Type Department Care Team (Late st Contact Info) Description 03/11/2025 Telephone [facility] Medicine Otolaryngology [facility] [place] [address] Monet Reno MS Social History Tobacco Use Types Packs/Day Years Used Date Smoking Tobacco: Some Days Cigars Smokeless Tobacco: Never Comments:CIGARS EVERY NOW AN D AGAIN Alcohol Use Standard Drinks/Week Comments Not Currently 0 (1 standard drink = 0.6 oz pur e alcohol) AUDIT-C Answer Date Recorded Q1: How often do you have a drink containing alcohol? Never 11/28/2024 Q2: How many drinks containi ng alcohol do you have on a typical day when you are drinking? Patient does not drink Q3: How often do you have si x or more drinks on one occasion? Never 11/28/2024 Personal Safety Answer Date Recorded Have you ever been in or are you currently in a harmful physical or emotional relationship or is someone making you feel afraid or unsafe? Denies 11/28/2024 Sex and Gender Information Value Date Recorded Sex Assigned at Not on file Legal Sex Male 2:25 AM DIRECT[employer] EDUC[employer] Gender Identity Male 12/19/2020 11:20 AM CDT Sexual Orientation Not on file documented as of this encounter Miscellaneous Notes * Telephone Encounter - Thomas Glenn - 03/11/2025 3:05 PM CST Raymon from [employer] called for recent visit notes for trache supplies sent IB from [employer] documented in this encounter Plan of Treatment Not on file documented as of this encounter Visit Diagnoses Not on filedocumented in this encounter Care Teams Recruitment Specialist Relationship Specialty Start Date End Date Krupa Gibbs MD [address] [place] [address] PCP - General Family Practice 10/11/23 Heather Cavazos SLP [address] [place] [address] Speech Language Pathologist Speech Therapy 10/13/17 Fabienne Kauffman SLP [address] [facility] [address] [address] [place], [place] [id number] Speech Language Pathologist Speech Therapy 11/15/17 documented as of this encounter
--- OUTSIDE RECORDS SUMMARY | 2025-03-29 18:21 | XMS_ITS | Clinical Summary ---
Author Organization [facility] Address [address] [place] [id number] Care Team Providers Care Medical Office Representative Name Role Phone Heather Cavazos LOAN SERVICING OFFICER Unavailable [phone] Fabienne Kauffman LOAN SERVICING OFFICER Unavailable [phone] Krupa Gibbs MD Primary Care Provid er Allergies Active Allergy Reactions Criticality Noted Date Comments Sinecatechins Rash Medium 07/13/2010 Medications potassium chloride ER (KLOR-CON,K-DUR) 20 mEq CR tablet take 2 tablet by oral route 2 times every day with food 0 0 7 Active Additional Information Patient taking differently:20 mEqoral 2 times daily, Indications: supplement, Informant: Self, Reported on 01/01/2025 tamsulosin (FLOMAX) 0.4 mg capsule,extended release 24hr take 1 capsule by oral route every day 1/2 hour following the same meal each day 0 0 7 Active Additional Information Patient taking differently:0.4 mgoral Nightly, Informant: Self, Reported on 01/01/2025 furosemide (LASIX) 20 mg tabletIndication s:Edema,hyperten kathia Take 3 tablets (60 mg total) by mouth 2 (two) times a day Active cyanocobalamin (Vitamin B-12) 100 mcg tabletIndication s:Prevention of Vitamin B12 Deficiency Take 1 tablet (100 mcg total) by mouth 2 (two) times a day Active aspirin 81 mg enteric coated tabletIndication s:Pain,primary prevention of coronary heart disease Take 1 tablet (81 mg total) by mouth nightly Active carvediloL (COREG) 12.5 mg tablet Take 1 tablet (12.5 mg total) by mouth 2 (two) times a day with meals 180 tablet 3 1 Active Additional Information Patient taking differently: 6.25 mgoral 2 times daily with meals (bkfst, dinner),Indications: hypertension, Informant: Self, Reported on 01/01/2025 levothyroxine (SYNTHROID) 137 mcg tabletIndication s:hypothyroidism Take 150 mcg by mouth radiopharmacist before breakfast Active empagliflozin (JARDIANCE) 25 mg tabletIndication s:Heart Failure Take 1 tablet (25 mg total) by mouth radiopharmacist before breakfast Active finasteride (PROSCAR) 5 mg tabletIndication s:benign prostatic hyperplasia with lower urinary tract sx Take 1 tablet (5 mg total) by mouth radiopharmacist before breakfast Active allopurinoL (ZYLOPRIM) 100 mg tabletIndication s:prevention of acute gout attack Take 1 tablet (100 mg total) by mouth radiopharmacist before breakfast 3 Active cholecalciferol (VITAMIN D-3) 2000 unit tabletIndication s:Vitamin D Deficiency Take 50 mcg by mouth radiopharmacist before breakfast 3 Active colchicine (COLCRYS) 0.6 mg tabletIndication s:prevention of acute gout attack Take 0.5 tablets (0.3 mg total) by mouth radiopharmacist before breakfast 3 Active valsartan (DIOVAN) 40 mg tabletIndication s:hypertension Take 0.5 tablets (20 mg total) by mouth radiopharmacist before breakfast 3 Active guaifenesin/dext romethorphan (DEXTROMETHORPHA N-GUAIFENESIN ORAL) Take by mouth 10-100 mg Active simvastatin (ZOCOR) 40 mg tablet Take 1 tablet (40 mg total) by mouth nightly Active oxycodone HCl (OXYCODONE ORAL) Take by mouth Active ferrous sulfate 325 mg (65 mg of elemental iron) tabletIndication s:Iron Deficiency Anemia Take 1 tablet (325 mg total) by mouth daily with breakfast Active apixaban (ELIQUIS) 2.5 mg tablet Take 1 tablet (2.5 mg total) by mouth 2 (two) times a day 180 tablet 1 5 Active Active Problems Problem Noted Date Diagnosed Date Cardiomyopathy 01/01/2025 Assessment & Plan (01/01/2025 4:45 PM CDT): -He has a cardiomyopathy with an ejection fraction of 30% when assessed 2023 -Echocardiogram scheduled for today -Cardiomyopathy likely multifactorial, PVCs, RV pacing contributing -Could consider amiodarone for PVC suppression, especially if atrial arrhythmias also present -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 This is something we will continue to evaluate. If we were to go down this route, PVC suppression would be important to maximize PLATE FURNACE OPERATOR. 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 Dx: SSS. Gen change 10/17/2019-Dr Matson, chronic epicardial leads 03/12/[address] Huerta. leads, abdominal implant. Chronic High Vent Pacing Threshold-stable. Carelink remote monitoring. Assessment & Plan (01/01/2025 4:41 PM CDT): -Sinus node dysfunction with high burden of atrial pacing, as well as AV delay and AV block with a high percentage of V pacing as well -Chronic high ventricular pacing threshold -Normal device function -Continue remote monitoring quarterly -Programmed AAIR-DDDR today Left ventricular systolic dysfunction 05/04/2017 Mitral valve regurgitation 05/04/2017 Osteomyelitis 04/14/2016 Coughing up blood 03/06/2015 Disorder of lung 11/13/2013 Difficulty in swallowing 08/15/2012 Hypertension 10/05/2010 Sick sinus syndrome 10/05/2010 Aortic valve stenosis 10/05/2010 Hyperlipidemia 09/14/2010 Overview (08/12/2017): Description: Hyperlipidemia 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 Cardiac Diagnostic Lab [address] [address] Left ventricular systolic dysfunction Discharge Disposition: Discharge to home or self care 01/01/2025 3:00 PM CDT Office Visit [facility] Medicine Cardiology [facility] Medicine 8th [place] [address] [place] [address] Valencia Lou NP Persistent atrial fibrillation (HCC) (Primary Dx); Presence of cardiac pacemaker; Other cardiomyopathy 01/01/2025 2:30 PM CDT Ancillary Procedure [facility] Medicine Cardiology [facility] Medicine [facility] [place] [address] [place] [address] AVB (atrioventricular block); Fitting or adjustment of cardiac pacemaker from Last 3 Months Immunizations Immunization Administration Dates Next Due Pfizer SARS-CoV-2 Monovalent Vaccination (12+ Yrs) PURPLE 02/20/2021 Surgical History Surgery Date Site/Laterality Comments OTHER SURGICAL HISTORY laryngeal carcinoma ABSCESS TUBE EXCHANGE 01/07/2015 N/A ABSCESS TUBE EXCHANGE 01/01/2015 N/A ABSCESS TUBE EXCHANGE 12/17/2014 N/A ABSCESS TUBE EXCHANGE 12/12/2014 N/A US SOFT TISSUE ABSCESS DRAIN 12/27/2014 N/A US GUIDED THORACENTESIS 11/06/2013 N/A BIOPSY DEEP BONE 04/05/2016 N/A AORTIC VALVE REPLACEMENT 05/02/2008 - 05/01/2009 COLONOSCOPY UPPER GASTROINTESTINAL ENDOSCOPY INSERT / REPLACE / REMOVE PACEMAKER 05/02/2019 - 05/01/2020 TRACHEOSTOMY 05/02/2008 - 05/01/2009 ESOPHAGEAL DILATION 05/02/2021 - 05/01/2022 CARDIAC ELECTROPHYSIOLOGY PROCEDURE 11/28/2024 N/A Procedure: CARDIOVERSION; Surgeon: Damien Kelly MD PhD; Location: [facility] CARDIAC POLE LIFT OPERATOR; Service: Cardiovascular; Laterality: N/A; Medical History Medical History Date Comments Aortic valve replaced Pacemaker Tracheostomy status (HCC) Dysphagia GERD (gastroesophageal reflux disease) Chronic constipation Chronic diarrhea Hypothyroidism Hypertension Arthritis Depression Cancer (HCC) Larnyx CA Family History Medical History Relation Name Comments Heart attack Father Myocardial Infa rction; Sudden Cardiac Mother Coronary artery disease Sister Sudden Cardiac Sister Relation Name Status Comments Father Alive Mother Sister Social History Tobacco Use Types Packs/Day Years Used Date Smoking Tobacco: Some Days Cigars Smokeless Tobacco: Never Tobacco Cessation:Ready to Q uit: Not Asked; Counseling Given: Not Answered Comments:CIGARS EVERY NOW AND AGAIN Alcohol Use Standard Drinks/Week Comments Not [...] on file Legal 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 Gender Identity Male 12/19/2020 11:20 AM CDT Sexual Orientation Not on file Last Filed Vital Signs Vital Sign Reading Time Taken Comments Blood Pressure 107/58 01/01/2025 2:11 PM CDT Pulse 66 01/01/2025 2:11 PM CDT Temperature 36.7 C (98.1 F) 11/28/2024 7:10 AM CDT Respiratory Rate 17 11/28/2024 9:50 AM CDT Oxygen Saturation 98% 01/01/2025 2:11 PM CDT Inhaled Oxygen Concentration - - Weight 82.7 kg (182 lb 6.4 oz) 01/01/2025 2:11 P M CDT Height 177.8 cm (5' 10) 01/01/2025 2:11 PM CDT Body Mass Index 26.17 01/01/2025 2:11 PM CDT Plan of Treatment Health Maintenance Due Date Last Done Comments Depression Screening 1940 DTaP/Tdap/Td Vaccine (1 - Tdap) 07/27/1950 Hepatitis B Screening 07/27/1957 Zoster Vaccine (1 of 2) 07/27/1989 Well Visit 65+ 07/27/2004 Covid-19 Vaccine (4 - 2024-2 6 season) 2024 02/20/2021, 06/13/2020, 05/23/2020 Influenza Vaccine (#1) 2024 , 02/18/2020, 02/15/2020, Additional history exists Fall Risk Assessment 11/28/2025 11/28/2024 Pneumococcal vaccine 65+ Completed 02/28/2020, 01/01 Medical Devices Implanted Type Area Interventional Radiology Rn Device Identifier Shelf Expiration Date Model / Serial / Lot Medtronic Cardiac Rhythm Mgmt [id number] Tyrx 2.7x2.5in Medium Envelope Absorbable Polyarylate Minocycline - [id number] Implanted:Qty: 1 on 10/17/2019 by Brianna Matson MD at [facility] Mesh Medtronic Inc 09/05/2020 [id number] / / [id number] Medtronic Inc Tyrx Absorbable Antibacterial Envelope-Med 2.7x2.5in [id number] - [id number] Implanted:Qty: 1 on 10/13/2023 by Kelley Forte MD at [facility] Other - see comments Medtronic Inc 07/21/2024 [id number] / / [id number] Description:Tyrx envelope Medtronic Cardiac Rhythm Mgmt [id number] Jyoti Wirelessly Pacemaker Cardiac - [id number] - [id number] Implanted:Qty: 1 on 10/17/2019 by Brianna Matson MD at [facility] Pacemaker Medtronic Inc 01/13/2021 [id number] / [id number] / Medtronic Inc [place] Mri Surescan 50.8x46.6mm 2 Chamber 7.4mm Pacemaker 22.5gm [id number] - [id number] - [id number] Implanted:Qty: 1 on 10/13/2023 by Kelley Forte MD at [facility] Pacemaker Medtronic Inc 09/26/2024 [id number] / [id number] / Pacemaker Stomach Procedures Procedure Name Priority Date/Time Associated Diagnosis Comments TRANSTHORACIC ECHO (TTE) COMPLETE W DOPPLER/CF W CONTRAST Routine 01/08/2025 12:29 PM CDT Left ventricular systolic dysfunction DEVICE CHECK - IN OFFICE Routine 01/01/2025 1:58 PM CDT AVB (atrioventricular block) Fitting or adjustment of cardiac pacemaker from Last 3 Months Results * TRANSTHORACIC ECHO (TTE) COMPLETE W DOPPLER/CF W CONTRAST (01/08/2025 12:29 PM CDT) EF Mod BP 27 % CONS SCIMAGE Anatomical Region Laterality Modality Ultrasound 01/08/2025 11:3 9 AM CDT Narrative 01/09/2025 12:06 PM CDT [facility] [place] [address] Transthoracic Echocardiographic Report Patient Name: CHANDRAKANT IRBY H : 1940 (84y 5m) Sex: M Study Date: 01/08/2025 11:39:56 AM Ht(Inch): 70 Wt(Lb): 182.1 BSA: 2.02 Book Reviewer: Chanel Peñaloza RDCS Location: [facility] Order Provider: KELLEY FORTE Heart Rate: 83 BMI: 26.13 BP: 113 / 36 Ref Provider: KELLEY FORTE PROCEDURES: Echocardiographic Report: Transthoracic complete echo with strain imaging and contrast, 2D, spectral and tissue Doppler, color flow Doppler, M-mode. Contrast: Contrast Enhancement was Employed: After initial imaging due to sub- optimal quality related to co-morbidity defined by patient's body habitus and due to suboptimal image quality with inadequate visualization of at least 2 of 16 LV wall segments in any view after initial imaging. Perflutren contrast was administered using the volume necessary to obtain adequate images. 0.4 ml Optison Administered, (2.6 ml wasted). Technically difficult study due to: Body habitus. Poor acoustic windows. INDICATIONS: I51.89 Other ill-defined heart diseases. CONCLUSIONS: 1. Severely dilated left ventricle based on volume index. Eccentric LV hypertrophy. Severely depressed left ventricular systolic function. The Ejection Fraction (Ch's) is measured at 27 %. Grade II diastolic dysfunction (elevated mean LA pressure). The average global longitudinal strain is abnormal. 2. Resting Segmental Wall Motion Analysis: Total wall motion score is 2.00. There is global left ventricular hypokinesis. 3. Normal right ventricular size. Normal right ventricular systolic function. TV S'= 0.09 m/s (minimally decreased function). 4. A bioprosthetic valve is present in the aortic position. No paravalvular aortic regurgitation. ATTESTATION: I have personally reviewed and interpreted this study without fellow or resident. DISCLAIMER: The study images and the final report will be retained in the patient chart by the Echo Laboratory for the legally required time period. This chart constitutes the legal record of any testing performed. FINDINGS: Left Ventricle: Severely dilated left ventricle based on volume index. Eccentric LV hypertrophy. Severely depressed left ventricular systolic function. The Ejection Fraction (Ch's) is measured at 27 %. Grade II diastolic dysfunction (elevated mean LA pressure). The average global longitudinal strain is abnormal. The LV global strain is: -8.8 %. Resting Segmental Wall Motion Analysis: Total wall motion score is 2.00. There is global left ventricular hypokinesis. Right Ventricle: Normal right ventricular size. Normal right ventricular systolic function. TV S'= 0.09 m/s (minimally decreased function). Left Atrium: Severely dilated left atrium. Right Atrium: Right atrial dilatation. Mitral Valve: Normal mitral valve structure. Mild mitral valve regurgitation. The mitral regurgitation jet is eccentric and directed posteriorly. The mean transmitral gradient is: 1 mmHg. Aortic Valve: The mean transaortic gradient is 6 mmHg. The aortic valve area by the continuity equation (using VTI) is 1.53 cm2. Aortic valve dimensionless index is 0.80. A bioprosthetic valve is present in the aortic position. The aortic valve prosthesis appears well seated. The aortic prosthesis demonstrates normal leaflet motion. No paravalvular aortic regurgitation. Tricuspid Valve: Normal tricuspid valve structure. No tricuspid regurgitation. Pulmonic Valve: Normal pulmonic valve structure. Mild pulmonic regurgitation. Pericardium: Normal pericardium without pericardial effusion. Aorta: Normal aortic root size when indexed. Dilation of the ascending aorta when indexed. IVC: IVC is normal in size. MEASUREMENTS: 2D/MM Value Range Doppler Value Range LVIDd 2D 6.45 cm [ 4.20 - 5.80 ] AV Peak Paul 1.7 m/s [ 1.0 - 1.7 ] LVIDs 2D 5.70 cm [ 2.50 - 4.00 ] AV Peak PG 11.56 mmHg IVSd 2D 1.18 cm [ 0.60 - 1.00 ] AV Mean PG 6 mmHg LVPWd 2D 1.21 cm [ 0.60 - 1.00 ] AV VTI 32.4 cm LV Thickness Ratio 1.0 LVOT Peak Paul 1.4 m/s [ 0.7 - 1.1 ] LV FS 2D 11.64 % [ 25.00 - 43.00 ] LVOT Peak PG 7.84 mmHg LV Mass 2D 360.68 g LVOT Mean PG 4 mmHg LV Mass Index 2D 178.57 g/m2 LVOT VTI 25.9 cm RWT 0.38 LVOT Diam 1.56 cm EDV Mod BP 270.72 ml [ 62.00 - 150.00 ] FABBY VTI 1.53 cm2 LV EDV Index 134.03 ml/m2 LVOT/AV VTI 0.80 - Dimensionless index (DVI) ESV Mod BP 198.03 ml [ 21.00 - 61.00 ] MV E Peak Paul 0.9 m/s [ 0.6 - 1.3 ] EF Mod BP 27 % [ 52 - 72 ] MV A Peak Paul 0.7 m/s [ 1.0 - 1.2 ] LV GLS -8.8 % [ -25.0 - -18.0 ] MV E/A 1.2 ratio [ 0.8 - 1.5 ] LA Length 4C 6.51 cm MV Peak Paul 0.5 m/s LA Length 2C 6.93 cm MV Peak PG 1.00 mmHg LA Volume BP 98.77 ml MV Mean PG 1 mmHg LA Volume Index 48.90 ml/m2 [ 16.00 - 34.00 ] MV VTI 13.1 cm MV Annulus 2D 3.01 cm MV Decel Time 245.36 msec [ 104.00 - 258.00 ] RV Base Dimen 2D 4.2 cm [ 2.5 - 4.2 ] Med E` Paul 4.4 cm/sec [ 8.0 - 25.0 ] TAPSE 1.79 cm [ 1.71 - 5.00 ] Lat E` Paul 8.5 cm/sec [ 10.0 - 25.0 ] RA Volume 72.24 ml Average E/E` 13.95 RA Volume Index 35.77 ml/m2 MR Peak Paul 4.8 m/s IVC Diam 1.28 cm MR Peak PG 92.16 mmHg IVC Collapse 55 % MV Alias Paul 0.371 m/s AoR Diam 2D 3.75 cm [ 3.10 - 3.70 ] MR VTI 149.2 cm Ao Root Index 1.86 cm/m2 [ 1.00 - 2.00 ] MR Flow 83.92 ml/sec Asc Ao Diam 2D 4.32 cm MR PISA 0.6 Asc Ao Index 2.14 cm/m2 MR EROA 0.2 cm2 PISA Regurgitant Volume 29.8 ml RV S` 9.33 cm/sec PV Peak Paul 0.8 m/s [ 0.4 - 0.8 ] PV Peak PG 2.56 mmHg Electronically Signed By: Trip Velez M.D. 01/09/2025 12:05:32 PM CDT Wall Motion Analysis - Resting Procedure Note Trip Velez MD PhD - 01/09/2025 [facility] [place] [address] Transthoracic Echocardiographic Report Patient Name: CHANDRAKANT IRBY H : 1940 (84y 5m) Sex: M Study Date: 01/08/2025 11:39:56 AM Ht(Inch): 70 Wt(Lb): 182.1 BSA: 2.02 Book Reviewer: Chanel Peñaloza RDCS Location: [facility] Order Provider:KELLEY FORTE Heart Rate: 83 BMI: 26.13 BP: 113 / 36 Ref Provider: KELLEY FORTE PROCEDURES: Echocardiographic Report: Transthoracic complete echo with strain imagingand contrast, 2D, spectral and tissue Doppler, color flow Doppler, M-mode. Contrast: Contrast Enhancement was Employed: After initial imaging due tosub- optimal quality related to co-morbidity defined by patient's body habitus and dueto suboptimal image quality with inadequate visualization of at least 2 of 16 LV wallsegments in any view after initial imaging. Perflutren contrast was administered using thevolume necessary to obtain adequate images. 0.4 ml Optison Administered, (2.6 mlwasted). Technically difficult study due to: Body habitus. Poor acoustic windows. INDICATIONS: I51.89 Other ill-defined heart diseases. CONCLUSIONS: 1. Severely dilated left ventricle based on volume index. Eccentric LVhypertrophy. Severely depressed left ventricular systolic function. The EjectionFraction (Ch's) is measured at 27 %. Grade II diastolic dysfunction (elevated mean LApressure). The average global longitudinal strain is abnormal. 2. Resting Segmental Wall Motion Analysis: Total wall motion score is2.00. There is global left ventricular hypokinesis. 3. Normal right ventricular size. Normal right ventricular systolicfunction. TV S'= 0.09 m/s (minimally decreased function). 4. A bioprosthetic valve is present in the aortic position. Noparavalvular aortic regurgitation. ATTESTATION: I have personally reviewed and interpreted this study without fellow orresident. DISCLAIMER: The study images and the final report will be retained in the patientchart by the Echo Laboratory for the legally required time period. This chart constitutesthe legal record of any testing performed. FINDINGS: Left Ventricle: Severely dilated left ventricle based on volume index.Eccentric LV hypertrophy. Severely depressed left ventricular systolic function. TheEjection Fraction (Ch's) is measured at 27 %. Grade II diastolic dysfunction (elevatedmean LA pressure). The average global longitudinal strain is abnormal. The LVglobal strain is: -8.8 %. Resting Segmental Wall Motion Analysis: Total wall motion score is 2.00.There is global left ventricular hypokinesis. Right Ventricle: Normal right ventricular size. Normal right ventricularsystolic function. TV S'= 0.09 m/s (minimally decreased function). Left Atrium: Severely dilated left atrium. Right Atrium: Right atrial dilatation. Mitral Valve: Normal mitral valve structure. Mild mitral valveregurgitation. The mitral regurgitation jet is eccentric and directed posteriorly. The meantransmitral gradient is: 1 mmHg. Aortic Valve: The mean transaortic gradient is 6 mmHg. The aortic valvearea by the continuity equation (using VTI) is 1.53 cm2. Aortic valve dimensionlessindex is 0.80. A bioprosthetic valve is present in the aortic position. The aortic valveprosthesis appears well seated. The aortic prosthesis demonstrates normal leafletmotion. No paravalvular aortic regurgitation. Tricuspid Valve: Normal tricuspid valve structure. No tricuspidregurgitation. Pulmonic Valve: Normal pulmonic valve structure. Mild pulmonicregurgitation. Pericardium: Normal pericardium without pericardial effusion. Aorta: Normal aortic root size when indexed. Dilation of the ascendingaorta when indexed. IVC: IVC is normal in size. MEASUREMENTS: 2D/MM Value Range DopplerValue Range LVIDd 2D 6.45 cm [ 4.20 - 5.80 ] AV Peak Vel1.7 m/s [ 1.0 - 1.7 ] LVIDs 2D 5.70 cm [ 2.50 - 4.00 ] AV Peak PG11.56 mmHg IVSd 2D 1.18 cm [ 0.60 - 1.00 ] AV Mean PG6 mmHg LVPWd 2D 1.21 cm [ 0.60 - 1.00 ] AV VTI32.4 cm LV Thickness Ratio 1.0 LVOT Peak Vel1.4 m/s [ 0.7 - 1.1 ] LV FS 2D 11.64 % [ 25.00 - 43.00 ] LVOT Peak PG7.84 mmHg LV Mass 2D 360.68 g LVOT Mean PG4 mmHg LV Mass Index 2D 178.57 g/m2 LVOT VTI25.9 cm RWT 0.38 LVOT Diam1.56 cm EDV Mod BP 270.72 ml [ 62.00 - 150.00 ] FABBY VTI1.53 cm2 LV EDV Index 134.03 ml/m2 LVOT/AV VTI0.80 - Dimensionless index (DVI) ESV Mod BP 198.03 ml [ 21.00 - 61.00 ] MV E Peak Vel0.9 m/s [ 0.6 - 1.3 ] EF Mod BP 27 % [ 52 - 72 ] MV A Peak Vel0.7 m/s [ 1.0 - 1.2 ] LV GLS -8.8 % [ -25.0 - -18.0 ] MV E/A1.2 ratio [ 0.8 - 1.5 ] LA Length 4C 6.51 cm MV Peak Vel0.5 m/s LA Length 2C 6.93 cm MV Peak PG1.00 mmHg LA Volume BP 98.77 ml MV Mean PG1 mmHg LA Volume Index 48.90 ml/m2 [ 16.00 - 34.00 ] MV VTI13.1 cm MV Annulus 2D 3.01 cm MV Decel Bcns776.36 msec [ 104.00 - 258.00 ] RV Base Dimen 2D 4.2 cm [ 2.5 - 4.2 ] Med E` Vel4.4 cm/sec [ 8.0 - 25.0 ] TAPSE 1.79 cm [ 1.71 - 5.00 ] Lat E` Vel8.5 cm/sec [ 10.0 - 25.0 ] RA Volume 72.24 ml Average E/E`13.95 RA Volume Index 35.77 ml/m2 MR Peak Vel4.8 m/s IVC Diam 1.28 cm MR Peak PG92.16 mmHg IVC Collapse 55 % MV Alias Vel0.371 m/s AoR Diam 2D 3.75 cm [ 3.10 - 3.70 ] MR ZII667.2 cm Ao Root Index 1.86 cm/m2 [ 1.00 - 2.00 ] MR Flow83.92 ml/sec Asc Ao Diam 2D 4.32 cm MR PISA0.6 Asc Ao Index 2.14 cm/m2 MR EROA0.2 cm2 PISA Regurgitant Volume 29.8 ml RV S` 9.33 cm/sec PV Peak Paul 0.8 m/s [ 0.4 - 0.8] PV Peak PG 2.56 mmHg Electronically Signed By: Trip Velez M.D. 01/09/2025 12:05:32 PM CDT Wall Motion Analysis - Resting us Kelley Forte MD CV ECHO PROCEDUR ES Final Result * DEVICE CHECK - IN OFFICE (01/01/2025 1:58 PM CDT) Anatomical Region Laterality Modality Other 01/01/2025 2:00 AM CDT Narrative 01/06/2025 7:52 PM CDT Interpretation Summary: Battery and Leads (BL) Normal parameters noted on battery and lead(s) --- Estimate 2.5 years to JUAN Procedure Note Maxim Newell MD - 01/06/2025 Interpretation Summary: Battery and Leads (BL) Normal parameters noted on battery and lead(s) --- Estimate 2.5 years toERI Kelley Forte MD CV CARDIAC SERVI LC PROCEDURES Final Result from Last 3 Months Insurance [id number] [employer] MED[employer]ARE [employer]AGE [facility] MEDICARE Address: [place] [id number] [employer] MEDICARE ADVANTAGE [facility] MEDICARE Address: [place] [id number] [place] [id number] [facility] MEDICARE Address: [address] [address] [place] [address] MEDICARE ADVANTAGE [facility] MEDICARE Address: [address] [address] [place] [address] [facility] MEDIC[facility] Address: [address] [address] [place] [address] [employer] Advance Directives For more information, please contact: [phone] * Full Code (Latest Code Status on File) Date Activated Date Inactivated Comments 04/25/2022 5:56 AM 04/26/2022 4:17 PM Care Teams Medical Office Representative Relationship Specialty Start Date End Date Krupa Gibbs MD [facility] [place], [place] [address] PCP - General Family Practice 10/11/23 Heather Cvaazos, LOAN SERVICING OFFICER [address] [facility] [address] [place] [address] Speech Language Pathologist Speech Therapy 10/13/17 Fabienne Kauffman, FARIHA [address] [place] [id number] Speech Language Pathologist Speech Therapy 11/15/17
--- OUTSIDE RECORDS SUMMARY | 2025-03-29 18:21 | XMS_ITS | Encounter Summary ---
Author Organization [facility] Address [address] [facility] [place] [address] Care Team Providers Care Gusset Ripper Name Role Phone Ananth Wills MD Primary Care Provider [phone] Encounter Details Date Type Department Care Team (Late st Contact Info) Description 02/06/2021 Lab Requisition [facility] [address] [place] [address] Santino Rodriguez DMD [address] [place] [address] Illness, unspecified Social History Tobacco Use Types Packs/Day Years Used Date Smoking Tobacco: Former Smokeless Tobacco: Former Alcohol Use Standard Drinks/Week Comments No 0 (1 standard drink = 0.6 oz pur e alcohol) Sex and Gender Information Value Date Recorded Sex Assigned at Not on file Legal Sex Male 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 Gender Identity Not on file Sexual Orientation Not on file documented as of this encounter Plan of Treatment Not on file documented as of this encounter Procedures Procedure Name Priority Date/Time Associated Diagnosis Comments PATHOLOGY TISSUE Routine 02/06/2021 9:30 AM CDT Illness, unspecified documented in this encounter Results * PATHOLOGY TISSUE (02/06/2021 9:30 AM CDT) Case Report Surgical Pathology Report Case: [id number] Authorizing Provider: Santino Rodriguez DMD Collected: 02/06/2021 09:30 AM Ordering Location: [facility] Received: 02/06/2021 03:46 PM Pathologist: Arturo Seo DDS Specimen: Oral Biopsy, vestibule, mandibular left posterior 03/20/2021 4:09 PM [facility] Final Diagnosis Mucobuccal fold; mandibular left -- Fat necrosis and fibrosis (See comment) 03/20/2021 4:09 PM [facility] at [address] MANUFACTURING RECRUITER Microscopic Description and Comment The specimen consists of dome-shaped sections surfaced by stratified squamous epithelium. The submucosa consists of fibrocollagenous tissue contains necrotic fat cells surrounded by histiocytes. The histiocytes are positive for CD68 and vimentin, but negative for gonzalez-cytokeratin, SMA, CD34 and S-100. Comment: The case is reviewed by Dr. Arturo Chowdhury MD ([facility]) and Dr. Alex Jay ([facility]) who agree with the diagnosis. 03/20/2021 4:09 PM [facility] Clinical History 80 year-old male presents with a 1.0 cm moveable, submucosal, nodule of the left posterior mandibular vestibule. Lesion is of unknown duration and is asymptomatic. The patient is edentulous in this region. 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 Op: Excision 03/20/2021 4:09 PM [facility] Gross Description The requisition and specimen(s) are identified with the patient's name Chandrakant Irby. Received in formalin, specimen A, vestibule, mandibular left are 2 moore-brown oral mucosa tissues 0.6 x 0.4 x 0.2 cm and 0.6 x 0.5 x 0.4 cm. No distinct margin is found on the smaller fragment. The resection margin is inked green on the largest tissue and bisected. The specimen is entirely submitted in cassette A1. DF 03/20/2021 4:09 PM [facility] Disclaimer The performance characteristics of all immunohistochemical and indirect immunofluorescence stains (if any) cited in this report were determined by the Histopathology Laboratory of [facility]. Some of these tests were developed by our own laboratory and have not been cleared or approved by the US Food and Drug Administration. The FDA does not require this test to go through premarket FDA review. These tests are used for clinical purposes. They should not be regarded as investigational or for research. This laboratory is certified under the Clinical Laboratory Improvement Amendments (CLIA) as qualified to perform high complexity clinical laboratory testing. This case has been personally reviewed and interpreted by the attending (teaching) pathologist. 03/20/2021 4:09 PM [facility] Embedded Images 03/20/2021 4:09 PM [facility] Pathology/Cytolo gy ORAL CAVITY SPECIMEN / Unknown 02/06/2021 9:30 AM CDT 02/06/2021 3:46 PM CDT us Santino Rodriguez DMD LAB - PATHOLOGY/CYTOLOGY ORD ERABLES Final Result [facility] [address] [phone] documented in this encounter Visit Diagnoses Diagnosis Illness, unspecified documented in this encounter Care Teams Gusset Ripper Relationship Specialty Start Date End Date Ananth Wills [place] [address] [place] [address] PCP - General 01/13/10 documented as of this encounter
--- OUTSIDE RECORDS SUMMARY | 2025-03-29 18:21 | XMS_ITS | Encounter Summary ---
Author Organization [facility] Address [address] [place] [address] Phone Care Team Providers Care Bike Designer Name Role Phone Dirk Heather Iggy VEHICLE WINDOW TINTER Unavailable Fabienne Kauffman VEHICLE WINDOW TINTER Unavailable [phone] Zehra Goss NP Primary Care Provider [phone] Destin Rogers MD Primary Care Provider [phone] Damien Pimentel MD Primary Care Provider [phone] Krupa Gibbs MD Primary Care Provid er Encounter Details Date Type Department Care Team (Latest Contact Info) Description 09/12/2019 Orders Only [facility] Scanning, Provider Social History Tobacco Use Types Packs/Day Years Used Date Smoking Tobacco: Former Smokeless Tobacco: Never Alcohol Use Standard Drinks/Week Comments Yes 0 (1 standard drink = 0.6 oz pur e alcohol) Sex and Gender Information Value Date Recorded Sex Assigned at Not on file 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 Gender Identity Male 12/19/2020 11:20 AM CDT Sexual Orientation Not on file documented as of this encounter Plan of Treatment Not on file documented as of this encounter Procedures Procedure Name Priority Date/Time Associated Diagnosis Comments CARDIOLOGY DOCUMENT SCAN 09/12/2019 documented in this encounter Results * SCAN - CARDIOLOGY (09/12/2019) Anatomical Region Laterality Modality Other us Provider Scanning CV CARDIAC SERVICES PROCEDURES Final Result documented in this encounter Visit Diagnoses Not on filedocumented in this encounter Care Teams Bike Designer Relationship Specialty Start Date End Date Zehra Goss NP [address] [address] PCP - General Nurse Practitioner 08/30/19 01/16/20 Destin Rogers MD [address] [address] PCP - General Emergency Medicine 01/17/20 06/02/20 Damien Pimentel MD [address] [address] PCP - General Family Medicine 03/04/22 10/10/23 Krupa Gibbs MD [address] [place] [address] PCP - General Family Practice 10/11/23 Heather Cavazos, VEHICLE WINDOW TINTER [address] [place] [address] Speech Language Pathologist Speech Therapy 10/13/17 Fabienne Kauffman, FARIHA [address] [address] Speech Language Pathologist Speech Therapy 11/15/17 documented as of this encounter
--- OUTSIDE RECORDS SUMMARY | 2025-03-29 18:21 | XMS_ITS | Encounter Summary ---
Author Organization [facility] Address [address] [place] [address] Phone Care Team Providers Care Lead Cargo Mover Name Role Phone Heather Cavazos PRODUCTION HELPER Unavailable [phone] Fabienne Kauffman PRODUCTION HELPER Unavailable [phone] No, Physician Primary Care Provider [phone] Zehra Goss NP Primary Care Provider [phone] Destin Rogers MD Primary Care Provider [phone] Damien Pimentel MD Primary Care Provider [phone] Krupa Gibbs MD Primary Care Provid er Encounter Details Date Type Department Care Team (Late st Contact Info) Description 04/09/2019 Documentation [facility] ([facility]) - [facility] Medicine ENT [address] [facility] [address] [place] [address] [place] [id number] July Social History Tobacco Use Types Packs/Day Years Used Date Smoking Tobacco: Former Smokeless Tobacco: Never Alcohol Use Standard Drinks/Week Comments Yes 0 (1 standard drink = 0.6 oz pur e alcohol) Sex and Gender Information Value Date Recorded Sex Assigned at Not on file 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 Gender Identity Male 12/19/2020 11:20 AM CDT Sexual Orientation Not on file documented as of this encounter Plan of Treatment Not on file documented as of this encounter Visit Diagnoses Not on filedocumented in this encounter Care Teams Lead Cargo Mover Relationship Specialty Start Date End Date No, Physician PCP - General 01/09/19 08/29/19 Zehra Goss NP PCP - General Nurse Practitioner 08/30/19 01/16/20 Destin Rogers MD PCP - General Emergency Medicine 01/17/20 06/02/20 Damien Pimentel MD PCP - General Family Medicine 03/04/22 10/10/23 Krupa Gibbs MD [address] [place] [address] PCP - General Family Practice 10/11/23 Heather Cavazos, PRODUCTION HELPER [address] [place], [place] [id number] Speech Language Pathologist Speech Therapy 10/13/17 Fabienne Kauffman, FARIHA [address] [facility] [address] [place] [address] Speech Language Pathologist Speech Therapy 11/15/17 documented as of this encounter
--- OUTSIDE RECORDS SUMMARY | 2025-03-29 18:21 | XMS_ITS | Clinical Summary ---
Author Organization [facility] Address [address] [place] [address] Care Team Providers Care Player Manager Name Role Phone Unavailable Primary Care Provider Unavailabl e Social History Tobacco Use Types Packs/Day Years Used Date Smoking Tobacco: Never Assessed Sex and Gender Information Value Date Recorded Sex Assigned at Not on file Legal Sex Male 9:22 PM CDT Gender Identity Not on file Sexual Orientation Not on file Last Filed Vital Signs Vital Sign Reading Time Taken Comments Blood Pressure 118/64 02/21/2017 3:05 PM CDT Pulse 88 02/21/2017 3:05 PM CDT Temperature - - Respiratory Rate - - Oxygen Saturation - - Inhaled Oxygen Concentration - - Weight 90.3 kg (199 lb) 02/21/2017 3:05 PM CDT Height 177.8 cm (5' 10) 02/21/2017 3:05 PM CDT Body Mass Index 28.55 02/21/2017 3:05 PM CDT Plan of Treatment Health Maintenance Due Date Last Done Comments DTaP, Tdap and Td Vaccines ( 1 - Tdap) 07/27/1958 Zoster Vaccines (1 of 2) 07/27/1989 Pneumococcal Vaccine: 50+ Years (2 of 2 - PCV) 01/09/2013 01/10/2012 RSV Immunization or 60+ Years (1 - 1-dose 75+ series) 07/27/2014 COVID-19 Vaccine ( - 2024-2 6 season) 2024 Influenza Adult (#1) 2025 02/05/2016, 02/08/2015 Hepatitis A Vaccines Aged Out No long er eligible based on patient's age to complete this topic Meningococcal B Vaccine Aged Out No l onger eligible based on patient's age to complete this topic Meningococcal Vaccine Aged Out No earl andrea eligible based on patient's age to complete this topic RSV Immunizations Under 20 Months Aged Out No longer eligible b ased on patient's age to complete this topic
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
--- OUTSIDE RECORDS SUMMARY | 2025-03-29 18:21 | XMS_ITS | Clinical Summary ---
Author Organization [facility] Address [address] [place] [address] Care Team Providers Care Decal Maker Name Role Phone Ananth Wills MD Primary Care Provider [phone] Source Comments [facility],non-owned Affiliates and Associated Physician Practices is amultiple site organization consisting of ambulatory clinics and hospital sitesin [place], [place], [place] and [place]. This disclosure is being madepursuant to the Care Everywhere program and may not contain all information available regarding this patient. Last updated 18.[facility] Allergies Active Allergy Reactions Criticality Noted Date Comments Sinecatechins Rash 07/13/2010 Family History Medical History Relation Name Comments Allergy (Severe) Neg Hx CVA Neg Hx Cancer Neg Hx Cancer - Skin, Melanoma Neg Hx Cancer - Skin, Non Melanoma Neg Hx Eczema Neg Hx Hemophilia Neg Hx Psoriasis Neg Hx Rashes/Skin Problems Neg Hx Social History Tobacco Use Types Packs/Day Years Used Date Smoking Tobacco: Former Smokeless Tobacco: Former Alcohol Use Standard Drinks/Week Comments No 0 (1 standard drink = 0.6 oz pur e alcohol) Sex and Gender Information Value Date Recorded Sex Assigned at Not on file 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 Gender Identity Not on file Sexual Orientation Not on file Plan of Treatment Health Maintenance Due Date Last Done Comments DTAP/TDAP/TD VACCINES (1 - Tdap) 07/27/1959 PNEUMOCOCCAL VACCINE 50+ (1 of 1 - PCV) 07/27/1989 ZOSTER VACCINE (1 of 2) 07/27/1989 Respiratory Syncytial Virus (RSV) Vaccine Pt: or over 60 yrs (1 - 1-dose 75+ series) 07/27/2014 DEPRESSION SCREENING 05/02/2024 COVID-19 VACCINE (2024-2 6 season) 2024 INFLUENZA VACCINE (#1) 2024 HEPATITIS B VACCINE Aged Out No longe r eligible based on patient's age to complete this topic HIB VACCINE Aged Out No longer eligi ble based on patient's age to complete this topic HPV VACCINE Aged Out No longer eligi ble based on patient's age to complete this topic MENINGOCOCCAL (Group B) VACC INE SHARED DECISION-MAKING Aged Out No longer eligibl e based on patient's age to complete this topic MENINGOCOCCAL GROUPS A/C/Y/W VACCINE Aged Out No longer eligible b ased on patient's age to complete this topic Care Teams Decal Maker Relationship Specialty Start Date End Date Ananth Wills MD [address] [place] [address] PCP - General 01/13/10
--- OUTSIDE RECORDS SUMMARY | 2025-03-29 18:21 | XMS_ITS ---
Author Organization [facility] Address [facility] [place] [address] Care Team Providers Care Journeyman Patternmaker Name Role Phone Heather Cavazos SHELLFISH PROCESSING MACHINE TENDER Unavailable [phone] Fabienne Kauffman SHELLFISH PROCESSING MACHINE TENDER Unavailable [phone] Krupa Gibbs MD Primary Care Provid er Active Problems Problem Noted Date Diagnosed Date Cardiomyopathy 01/01/2025 Assessment & Plan (01/01/2025 4:45 PM CDT): -He has a cardiomyopathy with an ejection fraction of 30% when assessed 2023 -Echocardiogram scheduled for today -Cardiomyopathy likely multifactorial, PVCs, RV pacing contributing -Could consider amiodarone for PVC suppression, especially if atrial arrhythmias also present -Previously discussed PST SPECIALIST upgrade (would need to be right sided, [...] PVC suppression would be important to maximize PST SPECIALIST. 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 Past Treatment and Therapy Plans No past plan information found. Lifetime Dose Tracking * Chemical Lifetime Dose Automatic Entry Manual Entr y Fluoro Time 4 minutes 4 minutes 0 minutes Air kerma at the reference point (Ka,r) 31.01 mGy 2 8 mGy 3.01 mGy DLP 1,293 mGycm 1,293 mGycm 0 mGycm DAP 0.38 Gy-cm2 0 Gy-cm2 0.38 Gy-cm2
[2025-03-29] MEDS: LACTATED RINGERS 1,000 ML 999 ML IV CONT (18:36)
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
== END 2025-03-29 19:34 | disposition short-term general hospital (02) ==
LOC: ANHED 18:19
PROVIDERS: Emergency Provider Emergency Medicine
DX: I46.9 Cardiac arrest, cause unspecified (principal); S01.81XA Laceration without foreign body of other part of head, initial encounter; S12.000A Unspecified displaced fracture of first cervical vertebra, initial encounter for closed fracture; I95.9 Hypotension, unspecified; I50.42 Chronic combined systolic (congestive) and diastolic (congestive) heart failure; I38 Endocarditis, valve unspecified; I11.0 Hypertensive heart disease with heart failure; J44.9 Chronic obstructive pulmonary disease, unspecified; E78.2 Mixed hyperlipidemia; E03.9 Hypothyroidism, unspecified; G89.4 Chronic pain syndrome; F17.290 Nicotine dependence, other tobacco product, uncomplicated; Z95.0 Presence of cardiac pacemaker; Z95.2 Presence of prosthetic heart valve; Z87.442 Personal history of urinary calculi; Z85.828 Personal history of other malignant neoplasm of skin; Z85.21 Personal history of malignant neoplasm of larynx; Z79.899 Other long term (current) drug therapy; Z79.82 Long term (current) use of aspirin; V49.9XXA Car occupant (driver) (passenger) injured in unspecified traffic accident, initial encounter
CPT/HCPCS: 31500; 31525; 70450; 70486; 71045; 71260; 72125; 72129; 72132; 72170; 74177; 93005; 96361; 96365; 99285; J0168; J7120; Q9967